=== PATIENT | female | born 1980 | race Caucasian/White ===

== ENCOUNTER 2020-05-09 13:15 | Inpatient (IN) | payer OTHER, SELFPAY ==
--- OUTSIDE RECORDS SUMMARY | 2020-05-09 13:17 | XMS REPORT ---
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
--- OUTSIDE RECORDS SUMMARY | 2020-05-09 13:17 | XMS REPORT ---
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 Assessment Chronic cough R05 Active Assessment Counseling NOS Z71.9 Active Medications Medication Code Code Instructions Start End Status Dosage System Date Date Folic Acid ND 39240165564 1 mg Orally Nov 24Mar Active as daily 2019 Acyclovir ND 32876265736 200 MG Orally Active 1 ca psule Three times a day Methotrexate ND 05201235196 2.5 MG Orally Nov 24, Active 4 tabs once weekly 2019 BuPROPion HCl ND 03276183069 100 MG Orally Active 1 tablet Twice a day Levocetirizine ND 26774819521 5 MG Orally Active 1 tablet Dihydrochloride Once a day in evening Levonorgestrel ND 58821357439 1.5 MG Orally Active as directed Hydroxychloroquine ND 99661052408 200 MG Orally Nov Yoselyn ctive 2 tabs Sulfate Once a day 2019 Results No Known Results Summary Purpose [employer] Submission
--- OUTSIDE RECORDS SUMMARY | 2020-05-09 13:17 | XMS REPORT | Continuity of Care Document ---
:1980 Author Organization [employer] Care Team Providers Name Role Phone [employer] Unavailable Un available Problems Problem Status Onset Classification Date Comments Sourc e Date Reported ANCA-negative Active Diagnosis 03/31/2020 Sabee n vasculitis Najam Rash Active Diagnosis 02/10/2020 Jossie Najam Chronic cough Active Diagnosis 02/10/2020 Sabee n Najam Counseling NOS Active Diagnosis 02/10/2020 Sabe en Najam Medications Medication Details Route Status Patient Ordering Order Source Instructions Provider Date Folic Acid as Orally Active 1 mg Orally Najam Jossie directed daily 020 Najam Hydroxychloroquine 2 tabs Orally Active 200 MG Orally Najam Jossie Sulfate Once a day 020 Najam Methotrexate 5 tabs Orally Active 2.5 MG Orally Najam Sabee n once weekly 020 Najam Folic Acid as Orally Active 1 mg Orally Najam Jossie directed daily 020 Najam Hydroxychloroquine 2 tabs Orally Active 200 MG Orally Najam Jossie Sulfate Once a day 020 Najam PredniSONE 1 tab(s) Orally Active 10 MG Orally Najam Jossie with food Once a day 020 Najam Levocetirizine 1 tablet Orally Active 5 MG Orally Najam Sabe en Dihydrochloride in the Once a day Najam evening Levonorgestrel as Orally Active 1.5 MG Orally Najam Sab een directed Najam Acyclovir 1 capsule Orally Active 200 MG Orally Najam Jossie Three times a Najam day BuPROPion HCl 1 tablet Orally Active 100 MG Orally Najam Sab een Twice a day Najam Allergies, Adverse Reactions, Alerts Substance Category Reaction Severity Reaction Status Date Comments S ource type Reported Erythromycin Adverse Info Not Adverse Active Jossie Reaction Available Reaction 0 Corry m Immunizations No Data Provided for This Section Results No Data Provided for This Section Pathology Reports No Data Provided for This Section Diagnostic Reports No Data Provided for This Section Consultation Notes No Data Provided for This Section Discharge Summaries No Data Provided for This Section History and Physicals No Data Provided for This Section Vital Signs Vital Sign Value Date Comments Source Height 66 10/20/2019 Jossie Charles Diastolic (mm Hg) 74 10/20/2019 Jossie Ashely am Systolic (mm Hg) 132 10/20/2019 Jossie Corry m Weight 251 10/20/2019 Jossie Doesuzie Encounters No Data Provided for This Section Procedures No Data Provided for This Section Assessment and Plan No Data Provided for This Section Plan of Care No Data Provided for This Section Social History No Data Provided for This Section Family History No Data Provided for This Section Advance Directives No Data Provided for This Section Functional Status No Data Provided for This Section
--- OUTSIDE RECORDS SUMMARY | 2020-05-09 13:17 | XMS REPORT ---
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
--- OUTSIDE RECORDS SUMMARY | 2020-05-09 13:17 | XMS REPORT ---
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
--- OUTSIDE RECORDS SUMMARY | 2020-05-09 13:18 | XMS REPORT | Summary of Care ---
:1980 Author Organization [facility] Address [address] [place] [address] Care Team Providers Name Role Phone Swetha Portillo Primary Care Provider Reason for Visit Reason Onset Date Comments Erroneous encounter-disregard 04/26/2020 Encounter Details Date Type Department Care Team Description 04/26/2020 [facility] PAOsorio ENCOUNTER--DISREGARD [address] (Primar y Dx) [facility], [address] [place] [address] [place], [place] [phone] [address] Allergies Active Allergy Reactions Severity Noted Date Comments Erythromycin Nausea and/or Vomiting 04/30/2019 documented as of this encounter (statuses as of 04/26/2020) Medications Medication Sig Dispensed Refills Start Date End Date Status buPROPion SR 100 0 04/12/2019 Ac tive mg SR tablet norgestrel-ethin Take 1 1 Package 12 04/30/2019 04/26/2020 D iscontinued yl estradiol tablet by (Isatu r) 0.3-30 mg-mcg mouth daily. per tabletIndication s: Initiation of OCP (BCP) documented as of this encounter (statuses as of 04/26/2020) Active Problems Problem Noted Date Morbid obesity with body mass index of 40.0-49.9 04/30 documented as of this encounter (statuses as of 04/26/2020) Social History Tobacco Use Types Packs/Day Years Used Date Never Smoker Smokeless Tobacco: Never Used Alcohol Use Drinks/Week oz/Week Comments Yes Sex Assigned at Date Recorded Not on file COVID-19 Exposure Response Date Recorded In the last month, have you been in contact with No / Unsure 04/26/2020 9:57 AM CASE SUPERVISOR someone who was confirmed or suspected to have Coronavirus / COVID-19? documented as of this encounter Last Filed Vital Signs Not on filedocumented in this encounter Progress Notes Shobha Brown PA-C - 04/26/2020 10:00 AM CASE SUPERVISOR This encounter was opened in error. Please disregard. documented in this encounter Plan of Treatment Date Type Specialty Care Team Description 05/11/2020 Office Visit Obstetrics & Gynecology Shobha Brown PA-C [address] [place] [phone] Health Maintenance Due Date Last Done Comments VARICELLA VACCINES (1 of 2 - 1981 2-dose childhood series) DTaP,Tdap,and Td Vaccines (1 - 11/26/1999 Tdap) INFLUENZA VACCINE (#1) 2019 Depression Screening 04/30/2020 04/30/2019 PAP SMEAR 04/30/2022 04/30/2019 PNEUMOCOCCAL 0-64 YEARS COMBINED Aged Out No longer eligible based on SERIES patient's age to complete this topic documented as of this encounter Results Not on filedocumented in this encounter Visit Diagnoses Diagnosis ERRONEOUS ENCOUNTER--DISREGARD - Primary documented in this encounter documented as of this encounter
--- OUTSIDE RECORDS SUMMARY | 2020-05-09 13:18 | XMS REPORT | Encounter Summary ---
:1980 Author Reason for Visit Depressive disorder Instructions 1. Depressive disorder bupropion HCl SR 150 mg ta blet,12 hr sustained-release 2. Anxiety Discussion Note: None recorded.Patient educational handouts: No information available. Plan of Care Patient Instructions As noted above. Medication stopped at current dose. COunseled pt on follow-up [facility] psychiatr y - resource options discussed. Pt verbalized understanding and agreed to psychiatry as net step. Advised pt to keep a log/journal when sh e has increase in anxiety & / or depression - will be helpful in identifying triggers when seeing a specialist. Pt verbalizes understanding of plan and agrees to POC. 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 Referral None recorded. Procedures None recorded. Surgeries None recorded. Imaging None recorded. Medications Name Start Date bupropion HCl SR 100 mg tablet,12 hr sustained-release Take 1 tablet twice a day by oral route. bupropion HCl SR 150 mg tablet,12 hr sustained-release Take 1 tablet every 12 hours by oral route as directe d for 30 days. folic acid 1 mg tablet Low-Ogestrel (28) 0.3 mg-30 mcg tablet methotrexate sodium 2.5 mg tablet Medications Administered None recorded. Vitals Height Weight BMI Blood Pressure 5 ft 4 in 236 lbs 16 oz 40.7 kg/m2 105/61 mm[Hg] Results Lab Results Date Name Specimen Result Interpretation Description Value Range Status Address 03/30/2020 Rapid SARS CoV Sars negative West 2 Ag, QL IA, Cov 2 [facility]u [facility]: [address] [place] [address], [address] [place] [address] Allergies Code Code System Name Reaction Severity Status Onset 4053 RxNorm Erythromycin Base Active Problems Name Status Onset Date Source Anxiety Active 09/18/2019 Depressive Disorder Active 09/18/2019 Vasculitis of the Skin Active 09/18/2019 Seasonal Allergy Active 09/18/2019 Asthma Active 09/18/2019 Pruritic Rash Active 09/18/2019 Vasculitis Active 10/27/2019 Mass of Soft Tissue Active 12/02/2019 Procedures Date Name Performed by 04/02/2014 Oophorectomy Information not avai lable Vaccine List None recorded. Social History Tobacco Smoking Status Never Smoker Past Encounters Encounter Date Diagnosis Provider 04/26/2020 Depressive Disorder; Anxiety Sabiha Peng, AGNP-C: [address] [facility], [address], [place] [address], Ph. 03/30/2020 Suspected COVID-19; Headache; Sabiha Peng, Otitis Externa of Bilateral AGNP-C: [address] [facility], [address], [place] [address], Ph. History of Present Illness Anxiety/Depression Reported By: Patient HPI: Quality: symptoms worse in t he evening, symptoms worse during the day, mood worse, increased anxiet y, panic symptoms. Severity: unable to maintain relationships, inte rference with household activities, interference with sleep, int erference with work. Duration: symptoms lasting over 2 weeks. Onset/ Timing: cannot identify, a couple of months ago. Context: no major life stressors. Modifying Factors: social support. Associated Symptoms : no significant weight loss, no visual/auditory hallucinatio ns, no delusions, no shortness of breath, no crying spells, no panic, no isolation, appetite good, no apathy, maintaining functionality, h omicidal ideations, emotional lability, high irritability, hostility, anx iety, depression, restlessness/agitation, sleep disturbances, feeling guilty, sleeping more (hypersomnia), inability to make decisions, social withdrawal, decreased effectiveness/productivity, palpitations, trembling or shaking (tremor), paranoid, feeling persecuted , decreased energy, poor concentration Note: <div>Sandie Randhawa is a 39yo female who states she is here today to follow-up in her "depression & anxiety". Pt states that in the past month she has had 3 panic attacks in the lastmonth. Also reports moodiness often triggered by panic attacks. Pt also notes meds were working verywell up until about one month ago. </div>Review of Systems: ROS as noted in the HPI Review of Systems Comprehensive Adult Problem ROS Reported By: Patient Constitutional: Constitutional: no significa nt weight change, good appetite, no fever, happy/content, nor mal activity level, no fatigue Eyes: Eyes: no eye pain, no blurry vision, no eye redness, no eye itchiness, no eye swelling, no eye discharge, normal movement ENMT: ENMT: no ear pain, no ear di scharge, no hearing loss, no sinus pressure, no drooling, no fa cial swelling, no congestion, no sore throat, no hoarseness, no mouth lesions Cardiovascular: Cardiovascular: no chest alin n, normal heart rate Chest/Breasts: Breasts: no lumps, no tender ness, no discharge Respiratory: Respiratory: no cough, no wh eezing, no chest tightness, no pain with respiration, sherry l respiration Gastrointestinal: GI: no difficulty swallowing , no abdominal pain, no nausea, no vomiting, no diarrhea, no co nstipation, no blood in stools, no mucous in stool Genitourinary: : no discharge, no blood i n urine, no pain with urination, no increase in frequency of urination, no voiding urgency, no vaginal discharge Musculoskeletal: Musculoskeletal: no soft tis macarena swelling, no joint swelling, no myalgia, moves all extrem ities well, no previous injuries, no trauma Skin: Skin: no pain, no itchiness, no skin dryness, no flaking, no redness, no rash, no hives, no skin lesions, no skin growths, no skin lumps, no swelling, no bruising, no insect bites Neurological symptoms: Neuro: no numbness, no weakn ess, no tingling, no burning, no shooting pain, no headache, no dizziness, no loss of consciousness Endocrine: Endocrine: normal drinking, no temperature intolerance Allergic/Immunologic: Allergy/Immunologic: no snee zing, no runny nose Physical Exam Female Adult Exam Reported By: Patient Constitutional: General Appearance: healthy- appearing, well-developed, overweight. Level of Distress: moderate distress. Ambulation: ambulating normally Psychiatric: Insight: good judgement. Men danette Status: active and alert, anxious, depressed, agitated. Orienta tion: to time, to place, to person. Memory: recent memory normal , remote memory normal Head: Head: normocephalic, atrauma tic Eyes: Lids and Conjunctivae: non-i njected, no discharge, no pallor. Pupils: PERRLA. EOM: EOMI. S clerae: non-icteric. Vision: peripheral vision grossly intact ENMT: Ears: no lesions on external ear. Hearing: no hearing loss. Nose: no lesions on external nose, nares patent, no nasal discharge. Lips, Teeth, and Gums: no mo uth or lip ulcers. Oropharynx: moist mucous membranes Neck: Neck: supple, trachea midlin e, no masses, FROM. Lymph Nodes: no cervical LAD, no supraclavic ular LAD, no axillary LAD, no inguinal LAD. Thyroid: no enlargement , non-tender, no nodules Lungs: Respiratory effort: no dyspn ea. Auscultation: breath sounds normal, good air movement, CTA excep t as noted, no wheezing, no rales/crackles, no rhonchi Cardiovascular: Apical Impulse: not displace d. Heart Auscultation: RRR, normal S1, normal S2, no murmurs, no ru bs, no gallops. Pulses including femoral / pedal: normal thro ughout Abdomen: Bowel Sounds: normal. Inspec tion and Palpation: soft, non-distended, no tenderness , no guarding, no rebound tenderness, no masses, no CVA tenderness . Liver: non-tender, no hepatomegaly. Spleen: non-tender, no splen omegaly Musculoskeletal:: Motor Strength and Tone: nor mal motor strength, normal tone. Joints, Bones, and Muscles: normal movement of all extremities, no bony abnormalities, no contr actures, no malalignment, no tenderness. Extremities: no cyanosis, no edema, no varicosities, no palpable cord Neurologic: Gait and Station: normal gai t, normal station. Cranial Nerves: grossly intact. Coordination and Cerebellum: hlfqqb-rh-euuh intact, no tremor Skin: Inspection and palpation: no rash, no lesions, no ulcer, no abnormal nevi, no induration , no nodules, good turgor, no jaundice. Nails: normal Back: Thoracolumbar Appearance: no rmal curvature Notes: <p>
</p>
--- OUTSIDE RECORDS SUMMARY | 2020-05-09 13:18 | XMS REPORT | Summary of Care ---
:1980 Author Organization [facility] Address [address] [place] [address] Care Team Providers Name Role Phone Swetha Portillo Primary Care Provider Reason for Visit Reason Comments Refill Request OCP Encounter Details Date Type Department Care Team Description 04/26/2020 Refill [facility] Women's Brook Brown PA-C Refill Request (OCP) Healthcare- [address] [place] [address] [address] [place] [address] [phone] Allergies Active Allergy Reactions Severity Noted Date Comments Erythromycin Nausea and/or Vomiting 04/30/2019 documented as of this encounter (statuses as of 04/26/2020) Medications Medication Sig Dispensed Refills Start Date End Date Status buPROPion SR 100 0 04/12/2019 Ac tive mg SR tablet norgestrel-ethin Take 1 1 Package 0 04/26/2020 Ac tive yl estradioL tablet by 0.3-30 mg-mcg mouth daily. per tabletIndication s: Initiation of OCP (BCP) norgestrel-ethin Take 1 1 Package 12 04/30/2019 04/26/2020 D iscontinued yl estradiol tablet by (Reorde r) 0.3-30 mg-mcg mouth daily. per tabletIndication [...] with No / Unsure 04/26/2020 9:57 AM HOME HEALTH CARE CASE MANAGER someone who was confirmed or suspected to have Coronavirus / COVID-19? documented as of this encounter Last Filed Vital Signs Not on filedocumented in this encounter Miscellaneous Notes Telephone Encounter - Jadyn Anand RN - 04/26/2020 10:28 AM CSTPatient was scheduled for WWE today, however, was 4 days too early, last WWE 04/30/2019. Patient states that she runs out of her OCP this week. Per Shobha Brown PA-C, OK to send 1 mo courtesy refillof OCP. Patient verbalized understanding and agrees to plan of care. WWE scheduled for 05/11/2020. Jadyn Anand RN 04/26/2020 10:30 AM HEALTH CARE CASE MANAGER documented in this encounter Plan of Treatment Date Type Specialty Care Team Description 05/11/2020 Office Visit Obstetrics & Gynecology Shobha Brown PA-C [address] [place] [phone] Health Maintenance Due Date Last Done [...] filedocumented in this encounter Visit Diagnoses Diagnosis Initiation of OCP (BCP) General counseling for prescription of o ral contraceptives documented in this encounter Insurance Payer Benefit Plan / Group Subscriber ID Effective Dates Phone Address Type [place] [id number] 2020-Present HMO /PPO/POS documented as of this encounter
--- OUTSIDE RECORDS SUMMARY | 2020-05-09 13:18 | XMS REPORT | Continuity of Care Document ---
:1980 Author Organization [facility] t Address [address] [place] [address] Care Team Providers Name Role Phone Stephanie COLLINS Attending Clinician Gloria Peng Attending Clinician [phone] Problems Condition Condition Condition Status Onset Resolution Last Treating Co mments Source Name Details Category Date Date Treatment Clinician Date ANCA-negat Diagnosis Active 2020-03-31 Memoria agustín 03:46:17 l vasculitis Justen n ANCA-negat agustín vasculitis Active Diagnosis 03/31/2020 Jossie Najam Rash Diagnosis Active 2020-02-10 Mem oria 03:45:55 l Rash [place] Active Diagnosis 02/10/2020 Jossie Najam Chronic Diagnosis Active 2020-02-10 Me moria cough 03:45:55 l Chronic [place] cough Active Diagnosis 02/10/2020 Jossie Najam Counseling Diagnosis Active 2020-02-10 Memoria NOS 03:45:55 l [place] Counseling NOS Active Diagnosis 02/10/2020 Jossie Najam Allergies, Adverse Reactions, Alerts Allergy Allergy Status Severity Reaction(s) Onset Inactive Treating Comm ents Source Name Type Date Date Clinician Erythrom Erythrom Active Info Not 2019-04 Stephen kel ycin ycin Available 04-10 l 00:00: [place] 00 Medications Ordered Filled Start Stop Current Ordering Indication Dosage Frequency Signature Comments Components Source Medication Medication Date Date Medication? Clinician (SIG) Name Name Folic Acid 2019-04 Yes Jossie as Memor ia 2-29 Najam directed l 00:00: [place] 00 Levocetiriz 2019-04 Yes Jossie 1 tablet Memoria ine 1-10 Najam in the l Dihydrochlo 03:45: evening Her ride 55 Levonorgest 2020-1 Yes Jossie as Stephen kel rel 1-10 Najam directed l 03:45: [place] 55 Acyclovir 2020-1 Yes Jossie 1 capsule M emoria 1-10 Najam l 03:45: [place] 55 BuPROPion 2020-1 Yes Jossie 1 tablet Me moria HCl 1-10 Najam l 03:45: [place] 55 Hydroxychlo 2020-1 Yes Jossie 2 tabs Me moria roquine 1-09 Najam l Sulfate 00:00: Methotrexat 2020-0 Yes Jossie 5 tabs Me moria e 8-25 Najam l 00:00: Folic Acid 2020-0 Yes Jossie as Memor ia 8-25 Najam directed l 00:00: Hydroxychlo 2020-0 Yes Jossie 2 tabs Me moria roquine 8-10 Najam l Sulfate 00:00: PredniSONE 2020-0 Yes Jossie 1 tab(s) M emoria 8-10 Najam with food l 00:00: Vital Signs Vital Name Observation Time Observation Value Comments Source Height 2019-10-20 18:00:00 [facility] Diastolic (mm Hg) 2019-10-20 18:00:00 Mem orial [place] Systolic (mm Hg) 2019-10-20 18:00:00 Stephen rial [place] Weight 2019-10-20 18:00:00 [facility] Russel Procedures This patient has no known procedures. Encounters Start End Encounter Admission Attending Care Care Encounter Source Date/Time Date/Time Type Type Clinicians Facility Department ID 2020-04-26 2020-04-26 Office Stephanie [facility] [id number] 10:00:00 10:30:00 Visit Shobha Araujo [id number] Rufina [id number] Zakiya [id number] [address] 2020-04-26 2020-04-26 [facility] [id number] 00:00:00 00:00:00 , Sabiha [id number] Gloria [id number] 2020-03-30 2020-03-30 Outpatient [facility] [id number] Memoria 10:27:00 10:27:00 Rheumatol Rheumatolog l ogy y [place] [facility] 2020-03-11 2020-03-11 Outpatient [facility] [id number] Memoria 09:26:00 09:26:00 Rheumatol Rheumatolog l ogy y [facility] 2020-03-04 2020-03-04 Outpatient [facility] [id number] Memoria 08:31:00 08:31:00 Rheumatol Rheumatolog l ogy y [place] [facility] 2020-02-09 2020-02-09 Outpatient [facility] [id number] Memoria 13:15:00 13:15:00 Rheumatol Rheumatolog l ogy y [place] [facility] 2019-11-24 2019-11-24 Outpatient [facility] [id number] Memoria 13:11:00 13:11:00 Rheumatol Rheumatolog l ogy y [place] [facility] 2019-11-10 2019-11-10 Outpatient [facility] [id number] Memoria 15:04:00 15:04:00 Rheumatol Rheumatolog l ogy y [facility] 2019-11-10 2019-11-10 Outpatient [facility] [id number] Memoria 13:15:00 13:15:00 Rheumatol Rheumatolog l ogy y [facility] 2019-10-20 2019-10-20 Outpatient [facility] [id number] Memoria 13:00:00 13:00:00 Rheumatol Rheumatolog l ogy y [facility] Results This patient has no known results.
--- OUTSIDE RECORDS SUMMARY | 2020-05-09 13:18 | XMS REPORT | Summary of Care ---
:1980 Author Organization [facility] Address [address] [place] [id number] Care Team Providers Name Role Phone Swetha Portillo Primary Care Provider Reason for Visit Reason Onset Date Comments Erroneous encounter-disregard 04/26/2020 Encounter Details Date Type Department Care Team Description 04/26/2020 Office Visit Critical access hospitalShobha orozco [facility] PA-C ENCOUNTER--DISREGARD [address] (Prim[place] y Dx) [facility], [address] [place] [id number] [place], [place] [phone] Allergies Active Allergy Reactions Severity Noted Date Comments Erythromycin Nausea and/or Vomiting 04/30/2019 documented as of this encounter (statuses as of 04/26/2020) Medications Medication Sig Dispensed Refills Start Date End Date Status buPROPion SR 100 mg SR 0 04/12/2019 Active tablet norgestrel-ethinyl Take 1 tablet by 1 Package 12 04/30/2019 Active estradiol 0.3-30 mouth daily. 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 documented as of this encounter Last Filed Vital Signs Not on filedocumented in this encounter Progress Notes Shobha Brown PA-C - 04/26/2020 10:00 AM OPERATING ENGINEER APPRENTICE This encounter was opened in error. Please disregard. documented in this encounter Plan of Treatment Date Type Specialty Care Team Description 05/11/2020 Office Visit Obstetrics & Gynecology Shobha Brown PA-C [address] [place] [address] [id number] Health Maintenance Due Date Last Done [...]
[2020-05-09 15:10] LABS: Absolute Lymphocytes (CBC) 0.4 K/uL (0.7-4.9); Basophils % 0.2 % (0-1.3); Hematocrit 42.4 % (36.0-45.0); Lymphocytes % 12.7 % (15.3-44.8); MPV 11.9 fL (7.6-11.3); RBC Red Blood Cell Count 5.05 M/uL (3.86-4.86)
[2020-05-09] MEDS ORDERED: ONDANSETRON 4 MG/2 ML VIAL ONE (15:16)
[2020-05-09] MEDS ORDERED: ACETAMINOPHEN 500 MG TAB ONE (15:16)
[2020-05-09] MEDS ORDERED: NA CHLORIDE 0.9% 1,000 ML ONE (15:16)
[2020-05-09] MEDS ORDERED: METHYLPREDNISOLONE 125 MG INJ ONE (15:16)
[2020-05-09 15:31] LABS: C-Reactive Protein 70.3 mg/L (<3.00); Ferritin 92.7 ng/mL (8-388); Potassium 3.6 mmol/L (3.5-5.1)
--- NOTE | 2020-05-09 15:48 | RAD REPORT ---
EXAM DESCRIPTION: RAD - Chest Single View - 05/09/2020 3:42 pm CLINICAL HISTORY: Cough;Dyspnea Chest pain. COMPARISON: No comparisons FINDINGS: Portable technique limits examination quality. Moderate bilateral pulmonary opacities are present likely representing viral infection. The heart is normal in size. No displaced fractures.
--- NOTE | 2020-05-09 16:35 | ER ---
Nurse's Notes [facility] Name: Sandie Randhawa Age: 39 yrs Sex: Female : 1980 Arrival Date: 05/09/2020 Time: 13:18 Bed 13 Private MD: Diagnosis: Coronavirus infection, unspecified;Viral pneumonia, unspecified;Dehydration Presentation: 05/09 14:09 Chief complaint: Patient states: started with cough on Apr 21, tested positive for iw COVID on 05-05, now is SOB, fever, chills, worse cough, started vomiting lats night. Coronavirus screen: chills, congestion, cough unrelated to allergies, difficulty breathing, fatigue, fever. Ebola Screen: Patient negative for fever greater than or equal to 101.5 degrees Fahrenheit, and additional compatible Ebola Virus Disease symptoms Patient denies exposure to infectious person. Patient denies travel to an Ebola-affected area in the 21 days before illness onset. No symptoms or risks identified at this time. Risk Assessment: Do you want to hurt yourself or someone else? Patient reports no desire to harm self or others. Onset of symptoms was May 01, 2020. 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 - Social history:: Smoking status: Patient denies any tobacco usage or history of. - Family history:: not pertinent. - Hospitalizations: : No recent hospitalization is reported. Screenin:20 Abuse screen: Denies threats or abuse. Nutritional screening: No deficits noted. tw2 Tuberculosis screening: No symptoms or risk factors identified. Fall Risk None identified. Assessment: 14:20 General: Appears in no apparent distress. obese, Behavior is calm, cooperative, tw2 appropriate for age. 14:20 Pain: Complains of pain in body aches. Neuro: Level of Consciousness is awake, alert, tw2 obeys commands, Oriented to person, place, time, situation. Cardiovascular: Patient's skin is warm and dry. Respiratory: Reports shortness of breath at rest on exertion cough that is non-productive, persistent. GI: Abdomen is distended, non-distended, obese, Reports nausea. : No signs and/or symptoms were reported regarding the genitourinary system. EENT: Reports nasal congestion nasal discharge. Derm: No signs and/or symptoms reported regarding the dermatologic system. Musculoskeletal: Range of motion: intact in all extremities. 15:12 Reassessment: Patient appears in no apparent distress at this time. No changes from tw2 previously documented assessment. Patient and/or family updated on plan of care and expected duration. Pain level reassessed. Patient is alert, oriented x 3, equal unlabored respirations, skin warm/dry/pink. 17:06 Reassessment: Patient appears in no apparent distress at this time. No changes from tw2 previously documented assessment. Patient and/or family updated on plan of care and expected duration. Pain level reassessed. Patient is alert, oriented x 3, equal unlabored respirations, skin warm/dry/pink. 18:20 Reassessment: Patient appears in no apparent distress at this time. No changes from tw2 previously documented assessment. Patient and/or family updated on plan of care and expected duration. Pain level reassessed. Patient is alert, oriented x 3, equal unlabored respirations, skin warm/dry/pink. 18:53 Reassessment: Patient appears in no apparent distress at this time. No changes from tw2 previously documented assessment. Patient and/or family updated on plan of care and expected duration. Pain level reassessed. Patient is alert, oriented x 3, equal unlabored respirations, skin warm/dry/pink. Vital Signs: 14:12 BP 95 / 56; Pulse 73; Resp 20; Temp 101.4; Pulse Ox 90% on R/A; Weight 106.14 kg; iw Height 5 ft. 4 in. (162.56 cm); Pain 9/10; 15:12 BP 102 / 55; Pulse 89; Resp 20; Pulse Ox 93% on R/A; tw2 15:59 BP 103 / 58; Pulse 64; Resp 17; Pulse Ox 98% on R/A; tw2 16:59 BP 105 / 55; Pulse 84; Resp 22; Pulse Ox 92% on R/A; tw2 17:11 Temp 100.4(O); tw2 18:20 BP 101 / 53; Pulse 79; Resp 20; Pulse Ox 100% on 2 lpm NC; tw2 14:12 Body Mass Index 40.17 (106.14 kg, 162.56 cm) iw 16:59 pt placed on 2L nc at this time will continue to monitor tw2 ED Course: 13:18 Patient arrived in ED. as 14:10 Triage completed. iw 14:10 Bed in low position. Call light in reach. Pulse ox on. NIBP on. tw2 14:19 Suzie Matos RN is Primary Nurse. tw2 14:19 Arm band placed on. tw2 14:21 Jakob Berry MD is Attending Physician. rn 15:06 Inserted saline lock: 20 gauge in right antecubital area, using aseptic technique. tw2 Blood collected. 15:42 CXR XRAY In Process Unspecified. EDMS 16:34 Carlos Berry MD is Hospitalizing Provider. rn 18:29 No provider procedures requiring assistance completed. Patient admitted, IV remains in tw2 place. Administered Medications: 15:06 Drug: Zofran (Ondansetron) 4 mg Route: IVP; Site: right antecubital; tw2 17:11 Follow up: Response: No adverse reaction; Nausea is decreased tw2 15:08 Drug: SOLU-Medrol 125 mg Route: IVP; Site: right antecubital; tw2 17:13 Follow up: Response: No adverse reaction tw2 15:11 Drug: NS 0.9% 1000 ml Route: IV; Rate: 1000 ml; Site: right antecubital; tw2 16:15 Follow up: Response: No adverse reaction; IV Status: Completed infusion; IV Intake: tw2 1000ml 15:11 Drug: Tylenol 1000 mg Route: PO; tw2 17:12 Follow up: Response: No adverse reaction tw2 Intake: 16:15 IV: 1000ml; Total: 1000ml. tw2 Outcome: 16:35 Decision to Hospitalize by Provider. rn 18:32 Admitted to Med/surg accompanied by tech, via wheelchair, room 411, Report called to tw2 HERMELINDA Luna 18:32 Condition: stable 18:32 Instructed on the need for transfer. 18:53 Patient left the ED. tw2 Signatures: Dispatcher [employer] Trinidad Nugent Irene, RN RN iw Jakob Berry MD MD rn Wise, Tara, RN RN tw2 Corrections: (The following items were deleted from the chart) 14:21 14:12 Pulse 73bpm; Resp 20bpm; Pulse Ox 90% RA; Temp 101.4F; 106.14 kg; Height 5 ft. 4 iw in.; BMI: 40.1; Pain 9/10; iw 17:07 14:20 General: Appears in no apparent distress. obese, Behavior is calm, cooperative, tw2 appropriate for age, tw2 17:11 16:59 BP 105 / 55; Pulse 84bpm; Resp 22bpm; Pulse Ox 92% RA; tw2 tw2
--- NOTE | 2020-05-09 16:35 | EDPHYS ---
Physician Documentation [facility] Name: Sandie Randhawa Age: 39 yrs Sex: Female : 1980 Arrival Date: 05/09/2020 Time: 13:18 Bed 13 Private MD: ED Physician Jakob Berry HPI: 05/09 14:29 This 39 yrs old Female presents to ER via Ambulatory with complaints of rn covid+, feels worse. 14:29 The patient has shortness of breath at rest, with light activity. rn 14:30 Onset: The symptoms/episode began/occurred 1 week(s) ago. Duration: The symptoms are rn continuous. The patient's shortness of breath is aggravated by exertion, light activity. Associated signs and symptoms: Pertinent positives: productive cough, fever, Pertinent negatives: hemoptysis. Severity of symptoms: At their worst the symptoms were moderate in the emergency department the symptoms are unchanged. The patient has not experienced similar symptoms in the past. The patient has not recently seen a physician. Reports tested + for COVID 4 days ago at [facility], not prescribed anything, feels worse, feels weak, lightheaded and sob. Reports hx of asthma. + vomiting and diarrhea in addition to cough and sob. . [employer]: 14:12 LMP 04/26/2020 iw Historical: - Allergies: 14:12 Erythromycin; iw - Home Meds: 14:12 bupropion HCl 150 mg Oral TbER 1 tab 2 times per day [Active]; folic acid 1 mg Oral tab iw 1 tab once daily [Active]; methotrexate sodium 2.5 mg Oral tab 1 tab once wkly [Active]; albuterol sulfate inhalation Inhl [Active]; - PMHx: 14:12 Anxiety; Depression; ADD/ADHD; iw - PSHx: 14:12 right fallopian tube and ovary; iw - Immunization history:: Adult Immunizations. - Social history:: Smoking status: Patient denies any tobacco usage or history of. - Family history:: not pertinent. - Hospitalizations: : No recent hospitalization is reported. ROS: 14:30 Constitutional: + fever and chills Eyes: Negative for injury, pain, redness, and internal investigator, ENT: Negative for injury, pain, and discharge, Neck: Negative for injury, pain, and swelling, Cardiovascular: Negative for chest pain, palpitations, and edema, Respiratory: + sob and cough Abdomen/GI: + nausea/vomiting/diarrhea Back: Negative for injury and pain, : Negative for injury, bleeding, discharge, and swelling, MS/Extremity: Negative for injury and deformity, Skin: Negative for injury, rash, and discoloration, Neuro: Negative for numbness, tingling, and seizure. Exam: 14:30 Constitutional: This is a well developed, well nourished patient who is awake, alert, rn mild tachypnea Head/Face: Normocephalic, atraumatic. Eyes: Periorbital areas with no swelling, redness, or edema. ENT: dry MM, no stridor Cardiovascular: Regular rate and rhythm. No pulse deficits. Respiratory: + mild tachypnea, no retractions, frequent cough Abdomen/GI: soft, non-tender Skin: Warm, dry MS/ Extremity: Pulses equal, no cyanosis. Neuro: Awake and alert, GCS 15 15:16 ECG was reviewed by the Attending Physician. rn Vital Signs: 14:12 BP 95 / 56; Pulse 73; Resp 20; Temp 101.4; Pulse Ox 90% on R/A; Weight 106.14 kg; iw Height 5 ft. 4 in. (162.56 cm); Pain 9/10; 15:12 BP 102 / 55; Pulse 89; Resp 20; Pulse Ox 93% on R/A; tw2 15:59 BP 103 / 58; Pulse 64; Resp 17; Pulse Ox 98% on R/A; tw2 16:59 BP 105 / 55; Pulse 84; Resp 22; Pulse Ox 92% on R/A; tw2 17:11 Temp 100.4(O); tw2 18:20 BP 101 / 53; Pulse 79; Resp 20; Pulse Ox 100% on 2 lpm NC; tw2 14:12 Body Mass Index 40.17 (106.14 kg, 162.56 cm) iw 16:59 pt placed on 2L nc at this time will continue to monitor tw2 MDM: 14:21 Patient medically screened. rn 16:33 Differential diagnosis: pneumonia, pulmonary edema, COVID pneumonia, dehydration. Data rn reviewed: vital signs, nurses notes, lab test result(s), radiologic studies, plain films, and as a result, I will admit patient. Counseling: I had a detailed discussion with the patient and/or guardian regarding: the historical points, exam findings, and any diagnostic results supporting the discharge/admit diagnosis, lab results, radiology results, the need for further work-up and treatment in the hospital. Response to treatment: the patient's symptoms have mildly improved after treatment, and as a result, I will admit patient. Admission orders: after a detailed discussion of the patient's condition and case, the admit orders are written by me. ED course: Pt with moderate COVID pneumonia, hypotensive upon presentation, 90% on RA, still mild tachypnea, will observe overnight to Dr. Berry.. 05/09 14:28 Order name: Blood Culture Adult (2) rn 05/09 14:28 Order name: BMP; Complete Time: 16:19 rn 05/09 14:28 Order name: C-Reactive Protein; Complete Time: 16:19 rn 05/09 14:28 Order name: CBC with Diff; Complete Time: 15:16 rn 05/09 14:28 Order name: Ferritin; Complete Time: 16:19 rn 05/09 14:28 Order name: Lactate; Complete Time: 16:19 rn 05/09 14:28 Order name: Procalcitonin; Complete Time: 16:19 rn 05/09 14:28 Order name: CXR XRAY; Complete Time: 16:19 rn 05/09 14:28 Order name: EKG; Complete Time: 14:29 rn 05/09 17:08 Order name: CORONAVIRUS EDPA 05/09 14:28 Order name: Cardiac monitoring; Complete Time: 15:12 rn 05/09 14:28 Order name: Droplet/Contact Precautions; Complete Time: 14:56 rn 05/09 14:28 Order name: EKG - Nurse/Tech; Complete Time: 15:12 rn 05/09 14:28 Order name: IV Start; Complete Time: 14:57 rn 05/09 14:28 Order name: Labs collected and sent; Complete Time: 14:57 rn 05/09 14:28 Order name: O2 Per Protocol; Complete Time: 14:57 rn 05/09 14:28 Order name: O2 Sat Monitoring; Complete Time: 14:57 rn EC:16 Rate is 83 beats/min. Rhythm is regular. QRS [place] is Normal. NV interval is normal. QRS rn interval is normal. QT interval is normal. No Q waves. T waves are Normal. No ST changes noted. Clinical impression: Normal ECG. Interpreted by me. Reviewed by me. Administered Medications: 15:06 Drug: Zofran (Ondansetron) 4 mg Route: IVP; Site: right antecubital; tw2 17:11 Follow up: Response: No adverse reaction; Nausea is decreased tw2 15:08 Drug: SOLU-Medrol 125 mg Route: IVP; Site: right antecubital; tw2 17:13 Follow up: Response: No adverse reaction tw2 15:11 Drug: NS 0.9% 1000 ml Route: IV; Rate: 1000 ml; Site: right antecubital; tw2 16:15 Follow up: Response: No adverse reaction; IV Status: Completed infusion; IV Intake: tw2 1000ml 15:11 Drug: Tylenol 1000 mg Route: PO; tw2 17:12 Follow up: Response: No adverse reaction tw2 Disposition: 05/09/20 16:35 Hospitalization ordered by Carlos Berry for Observation. Preliminary diagnosis are Coronavirus infection, unspecified, Viral pneumonia, unspecified, Dehydration. - Bed requested for Telemetry/MedSurg (observation). - Status is Observation. tw2 - Condition is Stable. - Problem is new. - Symptoms have improved. Signatures: Dispatcher [employer] Suzy Link RN RN iw Nieto, Roman, MD MD rn Martinez, Eric em1 Suzie Matos RN RN tw2 Corrections: (The following items were deleted from the chart) 18:26 16:35 Hospitalization Ordered by Carlos Berry MD for Observation. Preliminary em1 diagnosis is Coronavirus infection, unspecified; Viral pneumonia, unspecified; Dehydration. Bed requested for Telemetry/MedSurg (observation). Status is Observation. Condition is Stable. Problem is new. Symptoms have improved. rn 18:53 18:26 05/09/2020 16:35 Hospitalization Ordered by Carlos Berry MD for Observation. tw2 Preliminary diagnosis is Coronavirus infection, unspecified; Viral pneumonia, unspecified; Dehydration. Bed requested for Telemetry/MedSurg (observation). Status is Observation. Condition is Stable. Problem is new. Symptoms have improved. em1
--- NOTE | 2020-05-09 17:11 | P.HP ---
Certification for Inpatient Patient admitted to: Observation With expected LOS: <2 Midnights Practitioner: I am a practitioner with admitting privileges, knowledge of patient current condition, hospital course, and medical plan of care. Services: Services provided to patient in accordance with Admission requirements found in Title 42 Section 412.3 of the Code of Federal Regulations Patient History Date of Service: 05/09/20 Reason for admission: Acute hypoxemic respiratory failure, COVID-19 Pneumonia History of Present Illness: 39-year-old F, PMH: Asthma, depression, anxiety, unknown vasculitis, who presents to the ED due to worsening shortness of breath, fevers/chills, cough over the past week. Since yesterday she has been having nausea, vomiting, and some diarrhea. She reports testing positive for COVID-19 ~1 week ago. Works at [employer], thinks she got it at work. Patient was noted to be afebrile, blood pressure slightly low, had mild leukopenia at 3.3, thrombocytopenia of 107, CRP: 70.3, pro calcitonin 0.06. CXR consistent with viral/ COVid pneumonia. 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 - Family History Father -: Diabetes Mother -: Diabetes - Social History Smoking Status: Never smoker Alcohol use: No CD- Drugs: No Place of Residence: Home (Alone) Review of Systems 10-point ROS is otherwise unremarkable Physical Examination - Studies Laboratory Data (last 24 hrs) 05/09/20 14:45: WBC 3.30 L, Hgb 13.9, Hct 42.4, Plt Count 107 L 05/09/20 14:45: Sodium 137, Potassium 3.6, BUN 6 L, Creatinine 0.88, Glucose 134 H Assessment and Plan - Advance Directives Does patient have a Living Will: No Does patient have a Durable POA for Healthcare: No Physician Review Additional Text: Physical exam Gen: Mild distress HEENT: Normal conjunctiva, sclerae anicteric CV: Regular rate rhythm, no murmur Pulm: Bibasilar crackles, diminished breath sounds Abd: Soft, nontender, nondistended Ext: no edema, no rash Neuro: AAOx3 Problem list: Acute hypoxemic respiratory failure secondary to COVID-19 pneumonia Asthma Depression/anxiety Unspecified vasculitis -pt hypoxic to 88-90% on RA at rest -will bring patient in for obs, start solumedrol, ivermectin, vitamin supplementation, lovenox -oxygen as needed, wean as tolerated -obtain home medications and restart -room air sats, executive secretary social welfare consult for home O2 -states unspecified vasculitis - had rash last year, being worked up by rheum, on MTX for this VTE: lovenox Code: full dispo: anticipate dc home in 24-48hrs, will likely need home O2 Time Spent Managing Pts Care (In Minutes): 65
[2020-05-09] MEDS: PROMETHAZINE INJ 25 MG/ML AMP IV PRN (19:49)
[2020-05-09] MEDS: METHYLPREDNISOLONE 125 MG INJ IV SCH (19:49)
[2020-05-09] MEDS: ASCORBIC ACID 500 MG TABLET PO SCH ×2 (19:50→21:00)
[2020-05-09] MEDS: FAMOTIDINE 20 MG TAB PO SCH (19:50)
[2020-05-09] MEDS: THIAMINE 200 MG/2 ML INJ IVP SCH (19:50)
[2020-05-09] MEDS: NA CHLORIDE 0.9% 1,000 ML IV SCH (19:51)
[2020-05-09] MEDS: INSULIN -REGULAR HUMAN 50 UNIT/0.5 ML ML SQ SCH (21:00)
[2020-05-09 21:33] VITALS: BMI 40.1
[2020-05-10] MEDS: ONDANSETRON 4 MG/2 ML VIAL IV PRN (04:03)
[2020-05-10 04:19] LABS: Absolute Lymphocytes (CBC) 0.4 K/uL (0.7-4.9); Basophils % 0.2 % (0-1.3); Hematocrit 38.6 % (36.0-45.0); Lymphocytes % 25.2 % (15.3-44.8); MPV 11.8 fL (7.6-11.3); RBC Red Blood Cell Count 4.64 M/uL (3.86-4.86)
[2020-05-10 04:46] LABS: Albumin 2.6 g/dL (3.4-5.0); Bilirubin Total 0.2 mg/dL (0.2-1.0); Ferritin 96.9 ng/mL (8-388); Magnesium 2.3 mg/dL (1.8-2.4); Potassium 4.3 mmol/L (3.5-5.1); Protein, Total 6.3 g/dL (6.4-8.2)
[2020-05-10 05:07] LABS: Blood Morphology Comment NOT SEEN (NOT SEEN); Platelet Estimate DECR; White Blood Cell Scan OK (OK)
[2020-05-10] MEDS: IVERMECTIN 3 MG TABLET PO SCH (08:22)
[2020-05-10] MEDS: NA CHLORIDE 0.9% 1,000 ML IV SCH ×2 (08:22→18:38)
[2020-05-10] MEDS: INSULIN -REGULAR HUMAN 50 UNIT/0.5 ML ML SQ SCH ×4 (08:23→21:10)
[2020-05-10] MEDS: ZINC SULFATE 220 MG CAP PO SCH (08:23)
[2020-05-10] MEDS: VITAMIN D 5,000 UNIT CAP PO SCH (08:23)
[2020-05-10] MEDS: ENOXAPARIN 40 MG/0.4 ML SQ SCH (08:24)
[2020-05-10] MEDS: THIAMINE 200 MG/2 ML INJ IVP SCH ×2 (08:24→21:11)
[2020-05-10] MEDS: METHYLPREDNISOLONE 125 MG INJ IV SCH ×2 (08:24→21:11)
[2020-05-10] MEDS: ASCORBIC ACID 500 MG TABLET PO SCH ×4 (08:25→21:09)
[2020-05-10] MEDS: FAMOTIDINE 20 MG TAB PO SCH ×2 (08:26→21:09)
[2020-05-10] MEDS: ACETAMINOPHEN 500 MG TAB PO PRN ×2 (12:13→22:30)
--- NOTE | 2020-05-10 18:47 | P.PN ---
Subjective Date of Service: 05/10/20 Chief Complaint: Acute hypoxemic respiratory failure, COVID-19 Pneumonia Subjective: Improving (Feeling a little bit better with the oxygen, still gets dyspneic and hypoxic with ambulation, eating better) Review of Systems 10-point ROS is otherwise unremarkable Physical Examination - Vital Signs Temperature: 98.5 F Blood Pressure: 117/59 Pulse: 66 Respirations: 24 Pulse Ox (%): 93 Assessment & Plan Physician Review Additional Text: Physical exam Gen: NAD HEENT: Normal conjunctiva, sclerae anicteric CV: Regular rate rhythm, no murmur Pulm: Bibasilar crackles, diminished breath sounds Abd: Soft, nontender, nondistended Ext: no edema, no rash Neuro: AAOx3 Problem list: Acute hypoxemic respiratory failure secondary to COVID-19 pneumonia Asthma Depression/anxiety Unspecified vasculitis -patient with SpO2 91% on 3 L nasal cannula -continue solumedrol, ivermectin, vitamin supplementation, lovenox -oxygen as needed, wean as tolerated -restart home meds -room air sats, social media designer consult for home O2 -states unspecified vasculitis - had rash last year, being worked up by rheum, on MTX for this VTE: lovenox Code: full dispo: anticipate dc home in 24-48hrs, will likely need home O2 awaiting home O2 set up Time Spent Managing Pts Care (In Minutes): 35
[2020-05-10] MEDS ORDERED: ALBUTEROL INHALER 60 PUFF/8 GM IH PRN (19:46)
[2020-05-10] MEDS: NORGESTREL ETHINYL ESTRADIOL PO SCH (21:00)
[2020-05-10] MEDS: BUPROPION HCL XL 150 MG TAB PO SCH (21:09)
[2020-05-10] MEDS: FOLIC ACID 1 MG TABLET PO SCH (21:10)
[2020-05-11 04:01] LABS: Absolute Lymphocytes (CBC) 0.6 K/uL (0.7-4.9); Lymphocytes % 6.2 % (15.3-44.8); MPV 11.4 fL (7.6-11.3); RBC Red Blood Cell Count 4.36 M/uL (3.86-4.86)
[2020-05-11 04:29] LABS: ALT/SGPT 52 U/L (12-78); AST/SGOT 38 U/L (15-37); Albumin 2.6 g/dL (3.4-5.0); Alkaline Phosphatase 63 U/L (45-117); BUN Blood Urea Nitrogen 9 mg/dL (7-18); Bicarbonate 23 mmol/L (21-32); Bilirubin Total 0.3 mg/dL (0.2-1.0); Ferritin 98.3 ng/mL (8-388); Glucose Level 177 mg/dL (74-106); Magnesium 2.3 mg/dL (1.8-2.4); Potassium 3.6 mmol/L (3.5-5.1); Sodium Level 142 mmol/L (136-145)
[2020-05-11 05:07] LABS: Blood Morphology Comment NOT SEEN (NOT SEEN); Platelet Estimate ADEQ
[2020-05-11] MEDS ORDERED: POTASSIUM 25 MEQ EFFERV TAB PO ONE (06:19)
[2020-05-11] MEDS: INSULIN -REGULAR HUMAN 50 UNIT/0.5 ML ML SQ SCH ×4 (07:30→21:00)
[2020-05-11] MEDS: FAMOTIDINE 20 MG TAB PO SCH ×2 (08:07→21:28)
[2020-05-11] MEDS: METHYLPREDNISOLONE 125 MG INJ IV SCH ×2 (08:07→21:28)
[2020-05-11] MEDS: ASCORBIC ACID 500 MG TABLET PO SCH ×4 (08:07→21:28)
[2020-05-11] MEDS: THIAMINE 200 MG/2 ML INJ IVP SCH ×2 (08:07→21:31)
[2020-05-11] MEDS: ENOXAPARIN 40 MG/0.4 ML SQ SCH (08:08)
[2020-05-11] MEDS: VITAMIN D 5,000 UNIT CAP PO SCH (08:08)
[2020-05-11] MEDS: ZINC SULFATE 220 MG CAP PO SCH (08:08)
[2020-05-11] MEDS: BUPROPION HCL XL 150 MG TAB PO SCH ×2 (08:08→21:27)
[2020-05-11] MEDS: ONDANSETRON 4 MG/2 ML VIAL IV PRN ×2 (08:08→20:27)
[2020-05-11] MEDS: NA CHLORIDE 0.9% 1,000 ML IV SCH ×2 (08:26→22:23)
[2020-05-11] MEDS: PROMETHAZINE INJ 25 MG/ML AMP IV PRN (10:30)
[2020-05-11] MEDS: BENZONATATE 100 MG CAP PO PRN (11:47)
[2020-05-11] MEDS ORDERED: NA CHLORIDE 0.9% 250 ML IV ONE (16:56)
[2020-05-11] MEDS ORDERED: ALBUTEROL INHALER 60 PUFF/8 GM IH PRN (17:00)
--- NOTE | 2020-05-11 17:04 | P.PN ---
Subjective Date of Service: 05/11/20 Chief Complaint: Acute hypoxemic respiratory failure, COVID-19 Pneumonia Patient report increase in shortness of breath. She is not requiring 3 L of oxygen by nasal cannula. She denies any chest pain. Physical Examination - Vital Signs Temperature: 98.1 F Blood Pressure: 102/58 Pulse: 63 Respirations: 16 Pulse Ox (%): 92 - Physical Exam General: Alert, Oriented x3, Mild distress HEENT: Mucous membr. moist/pink Neck: Supple, JVD not distended Respiratory: Normal air movement Cardiovascular: No edema, Regular rate/rhythm Gastrointestinal: Soft and benign, Non-distended Musculoskeletal: No swelling Integumentary: No rashes Neurological: Other (No focal motor deficit) Assessment And Plan - Current Problems (Diagnosis) (1) Acute respiratory failure with hypoxia Current Visit: Yes Status: Acute (2) Pneumonia due to COVID-19 virus Current Visit: Yes Status: Acute (3) Asthma Current Visit: Yes Status: Acute (4) Thrombocytopenia Current Visit: Yes Status: Acute Physician Review Additional Text: -patient with SpO2 91% on 3 L nasal cannula. -her clinical condition is getting worse. -status post Ivermectin -continue solumedrol, vitamin supplementation, lovenox -will give convalescent plasma and start Remdesivir today -oxygen as needed, wean as tolerated. -patient desaturate to 85% on room air at rest. -patient is on methotrexate for nonspecific vasculitis. VTE: lovenox Code: full
[2020-05-11] MEDS ORDERED: Remdesivir 200 MG in NA CHLORIDE 0.9% 250 ML IV ONE (18:00)
[2020-05-11] MEDS ORDERED: MORPHINE 4 MG/ML SYR IV PRN (20:02)
[2020-05-11] MEDS: NORGESTREL ETHINYL ESTRADIOL PO SCH (21:00)
[2020-05-11] MEDS: FOLIC ACID 1 MG TABLET PO SCH (21:28)
[2020-05-11] MEDS ORDERED: NA CHLORIDE 0.9% 250 ML ONE (23:05)
[2020-05-12 04:04] LABS: Absolute Lymphocytes (CBC) 0.4 K/uL (0.7-4.9); Basophils % 0.1 % (0-1.3); Hematocrit 34.7 % (36.0-45.0); Lymphocytes % 4.5 % (15.3-44.8); MPV 10.9 fL (7.6-11.3); RBC Red Blood Cell Count 4.12 M/uL (3.86-4.86)
[2020-05-12 04:34] LABS: ALT/SGPT 53 U/L (12-78); AST/SGOT 27 U/L (15-37); Albumin 2.6 g/dL (3.4-5.0); Alkaline Phosphatase 68 U/L (45-117); BUN Blood Urea Nitrogen 10 mg/dL (7-18); Bicarbonate 25 mmol/L (21-32); Bilirubin Direct < 0.1 mg/dL (0-0.2); Bilirubin Total 0.3 mg/dL (0.2-1.0); Glucose Level 212 mg/dL (74-106); Sodium Level 143 mmol/L (136-145)
[2020-05-12] MEDS: IVERMECTIN 3 MG TABLET PO SCH (08:50)
[2020-05-12] MEDS: FAMOTIDINE 20 MG TAB PO SCH ×2 (08:51→21:33)
[2020-05-12] MEDS: INSULIN -REGULAR HUMAN 50 UNIT/0.5 ML ML SQ SCH ×4 (08:51→21:00)
[2020-05-12] MEDS: ENOXAPARIN 40 MG/0.4 ML SQ SCH (08:51)
[2020-05-12] MEDS: ZINC SULFATE 220 MG CAP PO SCH (08:51)
[2020-05-12] MEDS: BUPROPION HCL XL 150 MG TAB PO SCH ×2 (08:52→21:33)
[2020-05-12] MEDS: METHYLPREDNISOLONE 125 MG INJ IV SCH ×2 (08:52→21:33)
[2020-05-12] MEDS: VITAMIN D 5,000 UNIT CAP PO SCH (08:52)
[2020-05-12] MEDS: ASCORBIC ACID 500 MG TABLET PO SCH ×4 (08:52→21:33)
[2020-05-12] MEDS: THIAMINE 200 MG/2 ML INJ IVP SCH ×2 (08:52→21:34)
[2020-05-12] MEDS: Remdesivir 100 MG in NA CHLORIDE 0.9% 250 ML IV SCH (11:00)
[2020-05-12] MEDS: NA CHLORIDE 0.9% 1,000 ML IV SCH (14:21)
--- NOTE | 2020-05-12 14:37 | P.PN ---
Subjective Date of Service: 05/12/20 Chief Complaint: Acute hypoxemic respiratory failure, COVID-19 Pneumonia Patient report increase in shortness of breath. She is now on high-flow oxygen. Patient states he feels better than yesterday. Physical Examination - Vital Signs Temperature: 97.8 F Blood Pressure: 109/57 Pulse: 67 Respirations: 28 Pulse Ox (%): 96 - Physical Exam General: Alert, Mild distress HEENT: Other (High-flow oxygen) Neck: JVD not distended Cardiovascular: No edema, Regular rate/rhythm, Normal S1 S2 Gastrointestinal: Soft and benign, Non-distended Musculoskeletal: No swelling Integumentary: No rashes Neurological: Other (No focal motor deficit.) Assessment And Plan - Current Problems (Diagnosis) (1) Acute respiratory failure with hypoxia Current Visit: Yes Status: Acute (2) Pneumonia due to COVID-19 virus Current Visit: Yes Status: Acute (3) Asthma Current Visit: Yes Status: Acute (4) Thrombocytopenia Current Visit: Yes Status: Acute Physician Review Additional Text: -patient now on high-flow oxygen -status post Ivermectin -status post convalescent plasma. -patient receiving Remdesivir. -continue solumedrol, vitamin supplementation, lovenox -patient is on methotrexate for nonspecific vasculitis. -start full-dose anticoagulation with Eliquis
[2020-05-12] MEDS: ONDANSETRON 4 MG/2 ML VIAL IV PRN (20:39)
[2020-05-12] MEDS: NORGESTREL ETHINYL ESTRADIOL PO SCH (21:00)
[2020-05-12] MEDS: FOLIC ACID 1 MG TABLET PO SCH (21:33)
[2020-05-13] MEDS: NA CHLORIDE 0.9% 1,000 ML IV SCH ×2 (02:01→15:08)
[2020-05-13 03:53] LABS: Absolute Lymphocytes (CBC) 0.4 K/uL (0.7-4.9); Basophils % 0.1 % (0-1.3); Hematocrit 36.7 % (36.0-45.0); Lymphocytes % 5.8 % (15.3-44.8); MPV 11.1 fL (7.6-11.3); RBC Red Blood Cell Count 4.38 M/uL (3.86-4.86)
[2020-05-13 04:14] LABS: ALT/SGPT 57 U/L (12-78); AST/SGOT 26 U/L (15-37); Albumin 2.5 g/dL (3.4-5.0); Alkaline Phosphatase 65 U/L (45-117); BUN Blood Urea Nitrogen 12 mg/dL (7-18); Bicarbonate 25 mmol/L (21-32); Bilirubin Direct 0.1 mg/dL (0-0.2); Bilirubin Total 0.3 mg/dL (0.2-1.0); Glucose Level 196 mg/dL (74-106); Potassium 3.9 mmol/L (3.5-5.1); Sodium Level 142 mmol/L (136-145)
[2020-05-13] MEDS ORDERED: POTASSIUM CL SA 10 MEQ TAB PO ONE (05:41)
[2020-05-13] MEDS: FAMOTIDINE 20 MG TAB PO SCH ×2 (09:27→20:59)
[2020-05-13] MEDS: METHYLPREDNISOLONE 125 MG INJ IV SCH ×2 (09:27→20:58)
[2020-05-13] MEDS: INSULIN -REGULAR HUMAN 50 UNIT/0.5 ML ML SQ SCH ×4 (09:28→21:21)
[2020-05-13] MEDS: ASCORBIC ACID 500 MG TABLET PO SCH ×4 (09:28→20:59)
[2020-05-13] MEDS: BUPROPION HCL XL 150 MG TAB PO SCH ×2 (09:28→20:58)
[2020-05-13] MEDS: ENOXAPARIN 40 MG/0.4 ML SQ SCH (09:29)
[2020-05-13] MEDS: THIAMINE HCL 100 MG TABLET PO SCH (09:29)
[2020-05-13] MEDS: ZINC SULFATE 220 MG CAP PO SCH (09:29)
[2020-05-13] MEDS: VITAMIN D 5,000 UNIT CAP PO SCH (09:29)
[2020-05-13] MEDS: Remdesivir 100 MG in NA CHLORIDE 0.9% 250 ML IV SCH (09:29)
--- NOTE | 2020-05-13 14:09 | P.PN ---
Subjective Date of Service: 05/13/20 Chief Complaint: Acute hypoxemic respiratory failure, COVID-19 Pneumonia Patient reports feeling better today. She is now on high-flow oxygen and 50% FiO2. Physical Examination - Vital Signs Temperature: 99.5 F Blood Pressure: 121/70 Pulse: 60 Respirations: 16 Pulse Ox (%): 91 - Physical Exam General: Alert, Mild distress Neck: JVD not distended Respiratory: Crackles/rales Cardiovascular: No edema, Regular rate/rhythm Gastrointestinal: Non-distended Musculoskeletal: No swelling, No tenderness Integumentary: No rashes Neurological: Other (No focal motor deficit) Assessment And Plan - Current Problems (Diagnosis) (1) Acute respiratory failure with hypoxia Current Visit: Yes Status: Acute (2) Pneumonia due to COVID-19 virus Current Visit: Yes Status: Acute (3) Asthma Current Visit: Yes Status: Acute (4) Thrombocytopenia Current Visit: Yes Status: Acute Physician Review Additional Text: -wean oxygen as tolerated -status post Ivermectin -status post convalescent plasma. -patient receiving Remdesivir day 3. -continue solumedrol, vitamin supplementation, lovenox -patient is on methotrexate for nonspecific vasculitis. -continue Eliquis
[2020-05-13] MEDS: FOLIC ACID 1 MG TABLET PO SCH (20:57)
[2020-05-13] MEDS: NORGESTREL ETHINYL ESTRADIOL PO SCH (21:00)
[2020-05-14] MEDS: ACETAMINOPHEN 500 MG TAB PO PRN (00:44)
[2020-05-14] MEDS: BENZONATATE 100 MG CAP PO PRN ×2 (00:48→20:48)
[2020-05-14] MEDS: NA CHLORIDE 0.9% 1,000 ML IV SCH ×2 (03:27→14:53)
[2020-05-14 05:16] LABS: ALT/SGPT 72 U/L (12-78); AST/SGOT 23 U/L (15-37); Albumin 2.4 g/dL (3.4-5.0); Alkaline Phosphatase 57 U/L (45-117); BUN Blood Urea Nitrogen 12 mg/dL (7-18); Bicarbonate 26 mmol/L (21-32); Bilirubin Direct 0.2 mg/dL (0-0.2); Bilirubin Total 0.4 mg/dL (0.2-1.0); Glucose Level 224 mg/dL (74-106); Potassium 4.1 mmol/L (3.5-5.1); Protein, Total 5.5 g/dL (6.4-8.2); Sodium Level 140 mmol/L (136-145)
[2020-05-14] MEDS: BUPROPION HCL XL 150 MG TAB PO SCH ×2 (08:40→20:47)
[2020-05-14] MEDS: VITAMIN D 5,000 UNIT CAP PO SCH (08:41)
[2020-05-14] MEDS: ZINC SULFATE 220 MG CAP PO SCH (08:41)
[2020-05-14] MEDS: METHYLPREDNISOLONE 125 MG INJ IV SCH ×2 (08:41→20:48)
[2020-05-14] MEDS: ASCORBIC ACID 500 MG TABLET PO SCH ×4 (08:41→20:48)
[2020-05-14] MEDS: THIAMINE HCL 100 MG TABLET PO SCH (08:41)
[2020-05-14] MEDS: FAMOTIDINE 20 MG TAB PO SCH ×2 (08:41→20:48)
[2020-05-14] MEDS: ENOXAPARIN 40 MG/0.4 ML SQ SCH (08:41)
[2020-05-14] MEDS: Remdesivir 100 MG in NA CHLORIDE 0.9% 250 ML IV SCH (08:42)
[2020-05-14] MEDS: INSULIN -REGULAR HUMAN 50 UNIT/0.5 ML ML SQ SCH ×4 (08:42→20:47)
[2020-05-14] MEDS: FOLIC ACID 1 MG TABLET PO SCH (20:48)
[2020-05-14] MEDS: NORGESTREL ETHINYL ESTRADIOL PO SCH (20:48)
[2020-05-15 04:25] LABS: ALT/SGPT 77 U/L (12-78); AST/SGOT 17 U/L (15-37); Albumin 2.4 g/dL (3.4-5.0); Alkaline Phosphatase 53 U/L (45-117); Bilirubin Direct 0.2 mg/dL (0-0.2); Bilirubin Total 0.6 mg/dL (0.2-1.0); Protein, Total 5.5 g/dL (6.4-8.2)
[2020-05-15] MEDS: ACETAMINOPHEN 500 MG TAB PO PRN ×2 (05:14→21:21)
[2020-05-15] MEDS: ENOXAPARIN 40 MG/0.4 ML SQ SCH (08:47)
[2020-05-15] MEDS: ZINC SULFATE 220 MG CAP PO SCH (08:47)
[2020-05-15] MEDS: VITAMIN D 5,000 UNIT CAP PO SCH (08:47)
[2020-05-15] MEDS: ASCORBIC ACID 500 MG TABLET PO SCH ×4 (08:47→21:22)
[2020-05-15] MEDS: METHYLPREDNISOLONE 125 MG INJ IV SCH ×2 (08:48→21:22)
[2020-05-15] MEDS: THIAMINE HCL 100 MG TABLET PO SCH (08:48)
[2020-05-15] MEDS: FAMOTIDINE 20 MG TAB PO SCH ×2 (08:48→21:22)
[2020-05-15] MEDS: BUPROPION HCL XL 150 MG TAB PO SCH ×2 (08:48→21:22)
[2020-05-15] MEDS: INSULIN -REGULAR HUMAN 50 UNIT/0.5 ML ML SQ SCH ×4 (08:49→21:26)
[2020-05-15] MEDS: NA CHLORIDE 0.9% 1,000 ML IV SCH ×2 (08:51→23:38)
[2020-05-15] MEDS: Remdesivir 100 MG in NA CHLORIDE 0.9% 250 ML IV SCH (09:34)
[2020-05-15] MEDS ORDERED: PROMETHAZINE INJ 25 MG/ML AMP IV PRN (12:10)
--- NOTE | 2020-05-15 12:47 | P.PN ---
Subjective Date of Service: 05/15/20 Chief Complaint: Acute hypoxemic respiratory failure, COVID-19 Pneumonia Patient reports feeling better. She reports improved appetite. Her oxygen requirement is decreasing. Physical Examination - Vital Signs Temperature: 98.6 F Blood Pressure: 156/95 Pulse: 55 Respirations: 22 Pulse Ox (%): 92 - Physical Exam General: Alert, In no apparent distress, Oriented x3 Cardiovascular: No edema, Regular rate/rhythm Gastrointestinal: Soft and benign, Non-distended Musculoskeletal: No swelling Integumentary: No rashes Neurological: Other (No focal motor deficit.) - Studies Microbiology Data (last 24 hrs): 05/09/20 14:30 Blood - Blood Aerobic Blood Culture - Final No growth in 5 days. 05/09/20 14:30 Blood - Blood Anaerobic Blood Culture - Final No growth in 5 days. 05/09/20 14:45 Blood - Blood Aerobic Blood Culture - Final No growth in 5 days. 05/09/20 14:45 Blood - Blood Anaerobic Blood Culture - Final No growth in 5 days. Assessment And Plan - Current Problems (Diagnosis) (1) Acute respiratory failure with hypoxia Current Visit: Yes Status: Acute (2) Pneumonia due to COVID-19 virus Current Visit: Yes Status: Acute (3) Asthma Current Visit: Yes Status: Acute (4) Thrombocytopenia Current Visit: Yes Status: Acute Physician Review Additional Text: -patient is requiring less oxygen. -wean from high-flow oxygen to oxygen by nasal cannula as tolerated. -status post Ivermectin -status post convalescent plasma. -status post Remdesivir. -continue solumedrol, vitamin supplementation, lovenox -patient is on methotrexate for nonspecific vasculitis. -continue Eliquis. -anticipating discharge within the next couple of days when she is able to tolerate 4 L of oxygen by nasal cannula.
--- NOTE | 2020-05-15 12:50 | P.PN ---
Subjective Date of Service: 05/14/20 Chief Complaint: Acute hypoxemic respiratory failure, COVID-19 Pneumonia Patient states she is feeling better. She is tolerating low oxygen flow rates. Physical Examination - Vital Signs Temperature: 98.6 F Blood Pressure: 156/95 Pulse: 55 Respirations: 22 Pulse Ox (%): 92 - Physical Exam General: Alert, In no apparent distress, Oriented x3 Neck: JVD not distended Respiratory: Normal air movement Cardiovascular: No edema, Regular rate/rhythm Gastrointestinal: Non-distended Musculoskeletal: No swelling Integumentary: No rashes Neurological: Other (No focal motor deficit.) - Studies Microbiology Data (last 24 hrs): 05/09/20 14:30 Blood - Blood Aerobic Blood Culture - Final No growth in 5 days. 05/09/20 14:30 Blood - Blood Anaerobic Blood Culture - Final No growth in 5 days. 05/09/20 14:45 Blood - Blood Aerobic Blood Culture - Final No growth in 5 days. 05/09/20 14:45 Blood - Blood Anaerobic Blood Culture - Final No growth in 5 days. Assessment And Plan - Current Problems (Diagnosis) (1) Acute respiratory failure with hypoxia Current Visit: Yes Status: Acute (2) Pneumonia due to COVID-19 virus Current Visit: Yes Status: Acute (3) Asthma Current Visit: Yes Status: Acute (4) Thrombocytopenia Current Visit: Yes Status: Acute Physician Review Additional Text: -wean from high-flow oxygen to oxygen by nasal cannula as tolerated. -status post Ivermectin -status post convalescent plasma. -status post Remdesivir. -continue solumedrol, vitamin supplementation, lovenox -patient is on methotrexate for nonspecific vasculitis. -continue Eliquis.
[2020-05-15] MEDS: BENZONATATE 100 MG CAP PO PRN (21:21)
[2020-05-15] MEDS: FOLIC ACID 1 MG TABLET PO SCH (21:22)
[2020-05-15] MEDS: NORGESTREL ETHINYL ESTRADIOL PO SCH (21:43)
[2020-05-16 06:54] LABS: ALT/SGPT 74 U/L (12-78); AST/SGOT 13 U/L (15-37); Albumin 2.6 g/dL (3.4-5.0); Alkaline Phosphatase 51 U/L (45-117); BUN Blood Urea Nitrogen 11 mg/dL (7-18); Bicarbonate 26 mmol/L (21-32); Bilirubin Total 0.6 mg/dL (0.2-1.0); Glucose Level 293 mg/dL (74-106); Potassium 3.9 mmol/L (3.5-5.1); Protein, Total 5.7 g/dL (6.4-8.2); Sodium Level 140 mmol/L (136-145)
[2020-05-16 07:03] LABS: Absolute Lymphocytes (CBC) 0.5 K/uL (0.7-4.9); Basophils % 0.1 % (0-1.3); Hematocrit 38.5 % (36.0-45.0); Lymphocytes % 5.2 % (15.3-44.8); RBC Red Blood Cell Count 4.56 M/uL (3.86-4.86)
[2020-05-16] MEDS ORDERED: POTASSIUM 25 MEQ EFFERV TAB PO ONE (07:43)
[2020-05-16] MEDS: THIAMINE HCL 100 MG TABLET PO SCH (09:09)
[2020-05-16] MEDS: ENOXAPARIN 40 MG/0.4 ML SQ SCH (09:09)
[2020-05-16] MEDS: METHYLPREDNISOLONE 125 MG INJ IV SCH ×2 (09:09→20:22)
[2020-05-16] MEDS: VITAMIN D 5,000 UNIT CAP PO SCH (09:10)
[2020-05-16] MEDS: ZINC SULFATE 220 MG CAP PO SCH (09:10)
[2020-05-16] MEDS: BUPROPION HCL XL 150 MG TAB PO SCH ×2 (09:10→20:22)
[2020-05-16] MEDS: INSULIN -REGULAR HUMAN 50 UNIT/0.5 ML ML SQ SCH ×4 (09:11→20:23)
[2020-05-16] MEDS: ASCORBIC ACID 500 MG TABLET PO SCH ×4 (09:11→20:22)
[2020-05-16] MEDS: FAMOTIDINE 20 MG TAB PO SCH ×2 (09:11→20:22)
[2020-05-16 09:12] LABS: Blood Morphology Comment NOT SEEN (NOT SEEN); Platelet Estimate ADEQ; White Blood Cell Scan OK (OK)
[2020-05-16] MEDS: NA CHLORIDE 0.9% 1,000 ML IV SCH (11:23)
--- NOTE | 2020-05-16 13:16 | P.PN ---
Subjective Date of Service: 05/16/20 Chief Complaint: Acute hypoxemic respiratory failure, COVID-19 Pneumonia Patient states she is feeling better. She is not tolerating 6 L of oxygen by nasal cannula. Physical Examination - Vital Signs Temperature: 98.3 F Blood Pressure: 104/55 Pulse: 57 Respirations: 22 Pulse Ox (%): 91 - Physical Exam General: Alert, In no apparent distress, Oriented x3 Neck: JVD not distended Respiratory: Other (Nonlabored breathing.) Cardiovascular: Regular rate/rhythm, Normal S1 S2 Gastrointestinal: Soft and benign, Non-distended Musculoskeletal: No swelling Integumentary: No rashes Neurological: Other (No focal motor deficit.) Assessment And Plan - Current Problems (Diagnosis) (1) Acute respiratory failure with hypoxia Current Visit: Yes Status: Acute (2) Pneumonia due to COVID-19 virus Current Visit: Yes Status: Acute (3) Asthma Current Visit: Yes Status: Acute (4) Thrombocytopenia Current Visit: Yes Status: Acute Physician Review Additional Text: -wean down oxygen as tolerated. -status post Ivermectin -status post convalescent plasma. -status post Remdesivir. -continue solumedrol, vitamin supplementation, lovenox -patient is on methotrexate for nonspecific vasculitis. -continue Eliquis. -discharge to home with home oxygen once she is able to tolerate 4 L by nasal cannula.
[2020-05-16] MEDS: BENZONATATE 100 MG CAP PO PRN (20:22)
[2020-05-16] MEDS: FOLIC ACID 1 MG TABLET PO SCH (20:22)
[2020-05-16] MEDS: ACETAMINOPHEN 500 MG TAB PO PRN (20:22)
[2020-05-16] MEDS: NORGESTREL ETHINYL ESTRADIOL PO SCH (20:23)
[2020-05-17 04:30] LABS: BUN Blood Urea Nitrogen 12 mg/dL (7-18); Bicarbonate 28 mmol/L (21-32); Glucose Level 349 mg/dL (74-106); Potassium 4.7 mmol/L (3.5-5.1); Sodium Level 136 mmol/L (136-145)
[2020-05-17] MEDS: THIAMINE HCL 100 MG TABLET PO SCH (09:14)
[2020-05-17] MEDS: VITAMIN D 5,000 UNIT CAP PO SCH (09:14)
[2020-05-17] MEDS: INSULIN -REGULAR HUMAN 50 UNIT/0.5 ML ML SQ SCH ×4 (09:14→21:09)
[2020-05-17] MEDS: ZINC SULFATE 220 MG CAP PO SCH (09:14)
[2020-05-17] MEDS: METHYLPREDNISOLONE 125 MG INJ IV SCH ×2 (09:14→20:59)
[2020-05-17] MEDS: ENOXAPARIN 40 MG/0.4 ML SQ SCH (09:15)
[2020-05-17] MEDS: FAMOTIDINE 20 MG TAB PO SCH ×2 (09:15→20:59)
[2020-05-17] MEDS: BUPROPION HCL XL 150 MG TAB PO SCH ×2 (09:15→20:59)
[2020-05-17] MEDS: ASCORBIC ACID 500 MG TABLET PO SCH ×4 (09:15→20:59)
--- NOTE | 2020-05-17 16:25 | P.PN ---
Subjective Date of Service: 05/17/20 Chief Complaint: Acute hypoxemic respiratory failure, COVID-19 Pneumonia Patient doing much better today. She is not tolerating 2-4 L of oxygen by nasal cannula. Physical Examination - Vital Signs Temperature: 98.3 F Blood Pressure: 108/62 Pulse: 86 Respirations: 19 Pulse Ox (%): 92 - Physical Exam General: Alert, In no apparent distress, Oriented x3 Neck: JVD not distended Respiratory: Other (Nonlabored breathing.) Cardiovascular: No edema, Regular rate/rhythm Gastrointestinal: Soft and benign, Non-distended Musculoskeletal: No swelling Integumentary: No rashes Neurological: Other (No focal motor deficit.) Assessment And Plan - Current Problems (Diagnosis) (1) Acute respiratory failure with hypoxia Current Visit: Yes Status: Acute (2) Pneumonia due to COVID-19 virus Current Visit: Yes Status: Acute (3) Asthma Current Visit: Yes Status: Acute (4) Thrombocytopenia Current Visit: Yes Status: Acute Physician Review Additional Text: -patient not tolerating 2-4 L of oxygen by nasal canula -status post Ivermectin -status post convalescent plasma. -status post Remdesivir. -continue solumedrol, vitamin supplementation, lovenox -patient is on methotrexate for nonspecific vasculitis. -continue Eliquis. -awaiting for home oxygen to be available for discharge.
--- NOTE | 2020-05-17 16:37 | P.DS ---
Admission Date: 05/09/20 Discharge Date: 05/18/20 Reason for Admission: Acute hypoxemic respiratory failure, COVID-19 Pneumonia - Problems (1) Acute respiratory failure with hypoxia Current Visit: Yes Status: Acute (2) Pneumonia due to COVID-19 virus Current Visit: Yes Status: Acute (3) Asthma Current Visit: Yes Status: Acute (4) Thrombocytopenia Current Visit: Yes Status: Acute Brief History of Present Illness: 39-year-old woman with a history of type 2 diabetes presented to the emergency department with a complaint of progressive shortness of breath, nonproductive cough, fever and chills, nausea and vomiting and diarrhea. Patient tested positive for COVID 19 1 week prior. Chest x-ray done in the emergency department demonstrated bilateral infiltrate consistent with COVID pneumonia. She was requiring 2 L of oxygen by nasal cannula. She was subsequently admitted for further management of COVID pneumonia with hypoxia. Hospital Course: Patient admitted to the medical floor and started on IV steroid, vitamin-C, vitamin-B and C supplementation. Her respiratory condition got worse and required high-flow oxygen. Patient was transfused 1 unit convalescent plasma and treated with IV Remdesivir. Patient respiratory condition then improved with treatment. Oxygen was weaned down from high-flow. She is currently tolerating 2 L by nasal cannula with good oxygen saturation. Patient has clinically improved. She states she feels much better. She states her appetite has improved. She is tolerating her meals. Vitals are stable. She is deemed clinically stable for discharge. Vital Signs/Physical Exam: Temp Pulse Resp BP Pulse Ox 98.3 F 86 19 108/62 92 05/17/20 16:25 05/17/20 16:25 05/17/20 16:25 05/17/20 16:25 05/17/20 16:25 General: Alert, In no apparent distress Neck: JVD not distended Respiratory: Other (No labored breathing.) Cardiovascular: Regular rate/rhythm Gastrointestinal: Soft and benign, Non-distended Musculoskeletal: No swelling Integumentary: No rashes Neurological: Other (No focal motor deficit) Laboratory Data at Discharge: WBC 10.20 K/uL (4.3-10.9) D 05/16/20 05:25 Hgb 12.8 g/dL (12.0-15.0) 05/16/20 05:25 Hct 38.5 % (36.0-45.0) 05/16/20 05:25 Plt Count 205 K/uL (152-406) D 05/16/20 05:25 Sodium 136 mmol/L (136-145) 05/17/20 03:13 Potassium 4.7 mmol/L (3.5-5.1) 05/17/20 03:13 BUN 12 mg/dL (7-18) 05/17/20 03:13 Creatinine 0.63 mg/dL (0.55-1.3) 05/17/20 03:13 Glucose 349 mg/dL (74-106) H 05/17/20 03:13 Magnesium 2.3 mg/dL (1.8-2.4) 05/11/20 03:15 Total Bilirubin 0.6 mg/dL (0.2-1.0) 05/16/20 05:25 AST 13 U/L (15-37) L 05/16/20 05:25 ALT 74 U/L (12-78) 05/16/20 05:25 Alkaline Phosphatase 51 U/L (45-117) 05/16/20 05:25 Home Medications: Albuterol Inhaler [Ventolin Inhaler*] 2 puff IH Q4HP PRN 05/09/20 Bupropion HCl [Wellbutrin Xl] 150 mg PO BID 05/09/20 Cetirizine HCl [Zyrtec*] 5 mg PO BEDTIME 05/09/20 Folic Acid 1 mg PO BEDTIME 05/09/20 Methotrexate [Methotrexate*] 12.5 mg PO SEECOM 05/09/20 Norgestrel-Ethinyl Estradiol [Cryselle-28 Tablet] 1 tab PO BEDTIME 05/09/20 Diet: ADA Activity: Ad paola Followup: NONE,NONE [Primary Care Provider] -
[2020-05-17] MEDS: FOLIC ACID 1 MG TABLET PO SCH (20:59)
[2020-05-17] MEDS: NORGESTREL ETHINYL ESTRADIOL PO SCH (21:00)
[2020-05-18 04:30] LABS: BUN Blood Urea Nitrogen 14 mg/dL (7-18); Bicarbonate 27 mmol/L (21-32); C-Reactive Protein < 2.90 mg/L (<3.00); Ferritin 39.9 ng/mL (8-388); Glucose Level 337 mg/dL (74-106); Potassium 4.4 mmol/L (3.5-5.1); Sodium Level 134 mmol/L (136-145)
[2020-05-18] MEDS: BUPROPION HCL XL 150 MG TAB PO SCH ×2 (08:06→20:33)
[2020-05-18] MEDS: FAMOTIDINE 20 MG TAB PO SCH ×2 (08:07→20:34)
[2020-05-18] MEDS: VITAMIN D 5,000 UNIT CAP PO SCH (08:07)
[2020-05-18] MEDS: THIAMINE HCL 100 MG TABLET PO SCH (08:08)
[2020-05-18] MEDS: ZINC SULFATE 220 MG CAP PO SCH (08:08)
[2020-05-18] MEDS: METHYLPREDNISOLONE 125 MG INJ IV SCH (08:09)
[2020-05-18] MEDS: ASCORBIC ACID 500 MG TABLET PO SCH ×4 (08:09→20:34)
[2020-05-18] MEDS: ENOXAPARIN 40 MG/0.4 ML SQ SCH (08:09)
[2020-05-18] MEDS: INSULIN -REGULAR HUMAN 50 UNIT/0.5 ML ML SQ SCH ×4 (08:12→20:56)
[2020-05-18] MEDS ORDERED: GLUCAGON 1 MG/VIAL IM PRN (18:45)
[2020-05-18] MEDS ORDERED: D50W 25 GM/50 ML VIAL IV PRN (18:48)
--- NOTE | 2020-05-18 18:49 | P.PN ---
Subjective Date of Service: 05/18/20 Chief Complaint: Acute hypoxemic respiratory failure, COVID-19 Pneumonia Subjective: Improving (doing well, anxious to go home, reports has power at home, awaiting home o2 delivery) Review of Systems 10-point ROS is otherwise unremarkable Physical Examination - Vital Signs Temperature: 98.4 F Blood Pressure: 161/78 Pulse: 93 Respirations: 20 Pulse Ox (%): 94 Assessment & Plan Physician Review Additional Text: Physical Exam General: AAOx3, NAD HEENT: normal conjunctiva, sclera anicteric CV: RRR, no edema Pulm: nonlabored respirations on 2L NC Abd: soft, NTND Ext: no edema, no rash Problem List Acute respiratory failure with hypoxia Pneumonia due to COVID-19 virus Asthma Thrombocytopenia improving, tolerating ~2L NC now, ambulating ok, with some dyspnea / hypoxia but improves s/p ivermectin, convalescent plasma, remdesevir decrease solumedrol lantus tonight. sliding scale insulin as well continue eliquis awaiting home O2 patient reports has power at house this morning Dispo: pending home O2 delivery, unlikely today given weather Time Spent Managing Pts Care (In Minutes): 40
[2020-05-18] MEDS: FOLIC ACID 1 MG TABLET PO SCH (20:33)
[2020-05-18] MEDS: NORGESTREL ETHINYL ESTRADIOL PO SCH (20:39)
[2020-05-18] MEDS: METHYLPREDNISOLONE 40 MG INJ IV SCH (20:39)
[2020-05-18] MEDS: BENZONATATE 100 MG CAP PO PRN (20:53)
[2020-05-18] MEDS ORDERED: INSULIN GLARGINE 100 UNITS/ML SQ SCH (21:00)
[2020-05-19] MEDS: ZINC SULFATE 220 MG CAP PO SCH (08:53)
[2020-05-19] MEDS: BUPROPION HCL XL 150 MG TAB PO SCH ×2 (08:53→21:12)
[2020-05-19] MEDS: THIAMINE HCL 100 MG TABLET PO SCH (08:53)
[2020-05-19] MEDS: METHYLPREDNISOLONE 40 MG INJ IV SCH ×2 (08:53→21:14)
[2020-05-19] MEDS: ASCORBIC ACID 500 MG TABLET PO SCH ×4 (08:53→21:12)
[2020-05-19] MEDS: FAMOTIDINE 20 MG TAB PO SCH ×2 (08:53→21:12)
[2020-05-19] MEDS: ENOXAPARIN 40 MG/0.4 ML SQ SCH (08:54)
[2020-05-19] MEDS: INSULIN -REGULAR HUMAN 50 UNIT/0.5 ML ML SQ SCH ×4 (08:54→21:13)
--- NOTE | 2020-05-19 17:35 | P.PN ---
Subjective Date of Service: 05/19/20 Chief Complaint: Acute hypoxemic respiratory failure, COVID-19 Pneumonia Subjective: Improving (Doing well, on 1 L nasal cannula. Awaiting her home O2 set up) Review of Systems 10-point ROS is otherwise unremarkable Physical Examination - Vital Signs Temperature: 97.6 F Blood Pressure: 120/58 Pulse: 86 Respirations: 18 Pulse Ox (%): 93 Assessment & Plan Physician Review Additional Text: Physical Exam General: AAOx3, NAD HEENT: normal conjunctiva, sclera anicteric CV: RRR, no edema Pulm: nonlabored respirations on 1L NC Abd: soft, NTND Ext: no edema, no rash Problem List Acute respiratory failure with hypoxia Pneumonia due to COVID-19 virus Asthma Thrombocytopenia improving, tolerating ~1L NC now, ambulating ok, with some dyspnea / hypoxia but improves s/p ivermectin, convalescent plasma, remdesevir decreased solumedrol yesterday increase lantus tonight. sliding scale insulin as well continue riley awaiting home O2 patient reports has power at house still states she is looking into finding her own home O2 Dispo: pending home O2 delivery, likely tomorrow Time Spent Managing Pts Care (In Minutes): 30
[2020-05-19] MEDS ORDERED: INSULIN GLARGINE 100 UNITS/ML SQ SCH (21:00)
[2020-05-19] MEDS: NORGESTREL ETHINYL ESTRADIOL PO SCH (21:00)
[2020-05-19] MEDS: FOLIC ACID 1 MG TABLET PO SCH (21:12)
[2020-05-20] MEDS: ENOXAPARIN 40 MG/0.4 ML SQ SCH (07:56)
[2020-05-20] MEDS: THIAMINE HCL 100 MG TABLET PO SCH (07:56)
[2020-05-20] MEDS: VITAMIN D 5,000 UNIT CAP PO SCH (07:57)
[2020-05-20] MEDS: METHYLPREDNISOLONE 40 MG INJ IV SCH (07:57)
[2020-05-20] MEDS: FAMOTIDINE 20 MG TAB PO SCH (07:57)
[2020-05-20] MEDS: ZINC SULFATE 220 MG CAP PO SCH (07:57)
[2020-05-20] MEDS: INSULIN -REGULAR HUMAN 50 UNIT/0.5 ML ML SQ SCH ×2 (07:57→12:00)
[2020-05-20] MEDS: ASCORBIC ACID 500 MG TABLET PO SCH ×2 (07:57→12:00)
[2020-05-20] MEDS: BUPROPION HCL XL 150 MG TAB PO SCH (10:51)
[2020-05-20 10:59] VITALS: O2SAT 94
[2020-05-20 12:00] VITALS: BP 107/57; TEMP 97.5
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
== END 2020-05-20 14:17 | disposition home or self-care (01) | DRG 177 ==
LOC: ER 13:15 → ERHOLD 16:56 → 4TH 18:46 → OBSVTOIN 21:35
PROVIDERS: ADMIT Hospitalist; ATTEND Hospitalist
PROC: XW033E5 Introduction of Remdesivir Anti-infective into Peripheral Vein, Percutaneous Approach, New Technology Group 5 (ICD-10-PCS; principal; 2020-05-11)
PROC: XW13325 Transfusion of Convalescent Plasma (Nonautologous) into Peripheral Vein, Percutaneous Approach, New Technology Group 5 (ICD-10-PCS; 2020-05-11)
DX: U07.1 COVID-19 (principal); J12.82 Pneumonia due to coronavirus disease 2019; J96.01 Acute respiratory failure with hypoxia; J45.909 Unspecified asthma, uncomplicated; F32.9 Major depressive disorder, single episode, unspecified; F41.9 Anxiety disorder, unspecified; I77.6 Arteritis, unspecified; D69.6 Thrombocytopenia, unspecified; Z79.4 Long term (current) use of insulin; Z88.1 Allergy status to other antibiotic agents; Z79.52 Long term (current) use of systemic steroids; Z79.899 Other long term (current) drug therapy
CPT/HCPCS: 36415; 36430; 71045; 80048; 80053; 80076; 82248; 82565; 82728; 82947; 83036; 83605; 83735; 84145; 85025; 86140; 86900; 86901; 86927; 87040; 93005; 94002; 94003; 94010; 94660; 94760; 96361; 96374; 96375; 99285; J1650; J1815; J2405; J2550; J2920; J2930; J3411; J7030; J7050

== ENCOUNTER 2020-06-05 17:49 | Emergency (ER) | payer BC, SELFPAY ==
--- OUTSIDE RECORDS SUMMARY | 2020-06-05 17:51 | XMS REPORT | Continuity of Care Document ---
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 M emoria agustín 03:46:02 l vasculitis Justen n ANCA-negat agustín vasculitis Active Problem 05/11/2020 Jossie Najam Rash Diagnosis Active 2020-02-10 Mem oria 03:45:55 l Rash [place] Active Diagnosis 02/10/2020 Jossie Najam Chronic Diagnosis Active 2020-02-10 Me moria cough 03:45:55 l Chronic [place] cough Active Diagnosis 02/10/2020 Jossie Najam Counseling Diagnosis Active 2020-02-10 Memoria NOS 03:45:55 l [place] Counseling NOS Active Diagnosis 02/10/2020 Jossie Najam Allergies, Adverse Reactions, Alerts Allergy Allergy Status Severity Reaction(s) Onset Inactive Treating Comm ents Source Name Type Date Date Clinician Erythrom Erythrom Active Info Not 2019-04 Stephen kel ycin ycin Available 04-10 l 00:00: [place] 00 Medications Ordered Filled Start Stop Current Ordering Indication Dosage Frequency Signature Comments Components Source Medication Medication Date Date Medication? Clinician (SIG) Name Name Folic Acid 2019-04 Yes Jossie as Memor ia 2-29 Najam directed l 00:00: [place] 00 Levocetiriz 2019-04 Yes Jossie 1 tablet Memoria ine 1-10 Najam in the l Dihydrochlo 03:45: evening Her ride 55 Levonorgest 2020-1 Yes Jossie as Stephen kel rel 1-10 Najam directed l 03:45: [place] 55 Acyclovir 2020-1 Yes Jossie 1 capsule [...] Diastolic (mm Hg) 2019-10-20 18:00:00 Mem orial [place] Systolic (mm Hg) 2019-10-20 18:00:00 Stephen rial [place] Weight 2019-10-20 18:00:00 [facility] Russ[place] Procedures This patient has no known procedures. Encounters Start End Encounter Admission Attending Care Care Encounter Source Date/Time Date/Time Type Type Clinicians Facility Department ID 2020-06-01 2020-06-01 Outpatient [facility] [id number] 00:00:00 00:00:00 , Sabiha [id number] Gloria [id number] 2020-05-26 2020-05-26 BASIL Tejeda [id number] 00:00:00 00:00:00 Shobha Araujo [id number] Rufina [id number] Profward [id number] [address] 2020-05-10 2020-05-10 Outpatient [facility] [id number] Memoria 13:37:00 13:37:00 Rheumatol Rheumatolog l ogy y [facility] 2020-04-26 2020-04-26 Office Stephanie [facility] [id number] 10:00:00 10:30:00 Visit Shobha [place] [id number] [place] [id number] Zakiya [id number] [address] 2020-04-26 2020-04-26 [facility] [id number] 00:00:00 00:00:00 , Sabiha [id number] Gloria [id number] 2020-03-30 2020-03-30 Outpatient [facility] [id number] Memoria 10:27:00 10:27:00 Rheumatol Rheumatolog l ogy y [facility] 2020-03-11 2020-03-11 Outpatient [facility] [id number] Memoria 09:26:00 09:26:00 Rheumatol Rheumatolog l ogy y [facility] 2020-03-04 2020-03-04 Outpatient [facility] [id number] Memoria 08:31:00 08:31:00 Rheumatol Rheumatolog l ogy y [facility] 2020-02-09 2020-02-09 Outpatient [facility] [id number] Memoria 13:15:00 13:15:00 Rheumatol Rheumatolog l ogy y [facility] 2019-11-24 2019-11-24 Outpatient [facility] [id number] Memoria 13:11:00 13:11:00 Rheumatol Rheumatolog l ogy y [facility] 2019-11-10 2019-11-10 Outpatient [facility] [id number] Memoria 15:04:00 15:04:00 Rheumatol Rheumatolog l ogy y [facility] 2019-11-10 2019-11-10 [facility] [id number] [facility]:15[facility] 13:15:00 [facility]ol [facility] l [facility] 2019-10-20 2019-10-20 Outpatient [facility] [id number] [facility] 13:00:00 13:00:00 Rheumatol Rheumatolog l [facility] Results This patient has no known results.
--- NOTE | 2020-06-05 19:55 | RAD REPORT ---
EXAM DESCRIPTION: US - Extremity Venous Uni Ltd - 06/05/2020 7:26 pm CLINICAL HISTORY: PAIN COMPARISON: None. TECHNIQUE: Real-time sonographic evaluation of the right lower extremity deep venous systems was per formed. FINDINGS: Normal compressibility, flow augmentation, phasic flow and spontaneous flow are identified in the right lower extremity common femoral, superficial femoral, popliteal and posterior tibial vei ns. No intraluminal filling defects seen. IMPRESSION: No DVT in the right lower extremity.
--- NOTE | 2020-06-05 20:08 | ER ---
Nurse's Notes [facility] Name: Sandie Randhawa Age: 39 yrs Sex: Female : 1980 Arrival Date: 06/05/2020 Time: 17:49 Bed 17 Private MD: Diagnosis: Muscle spasm of calf Presentation: 06/05 18:06 Chief complaint: Patient states: was d/c with COVID 2.5 weeks ago and was told it's iw possible to have blood clots, has had pain in right leg since Sunday getting worse. Coronavirus screen: Client presents with at least one sign or symptom that may indicate coronavirus-19. Client reports previous positive COVID test result. Ebola Screen: Patient negative for fever greater than or equal to 101.5 degrees Fahrenheit, and additional compatible Ebola Virus Disease symptoms Patient denies exposure to infectious person. Patient denies travel to an Ebola-affected area in the 21 days before illness onset. No symptoms or risks identified at this time. Initial Sepsis Screen: Does the patient meet any 2 criteria? No. Patient's initial sepsis screen is negative. Does the patient have a suspected source of infection? No. Patient's initial sepsis screen is negative. Risk Assessment: Do you want to hurt yourself or someone else? Patient reports no desire to harm self or others. Onset of symptoms was 2020. 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 - Social history:: Smoking status: Patient denies any tobacco usage or history of. Screenin:15 Abuse screen: Denies threats or abuse. Nutritional screening: No deficits noted. rb3 Tuberculosis screening: No symptoms or risk factors identified. Fall Risk None identified. Assessment: 18:15 General: Appears uncomfortable, Behavior is calm, cooperative. Pain: Complains of pain rb3 in right leg Pain currently is 10 out of 10 on a pain scale. Neuro: Level of Consciousness is awake, alert, obeys commands, Oriented to person, place, time, situation. Cardiovascular: Patient's skin is warm and dry. Respiratory: Airway is patent Respiratory effort is even, unlabored, Respiratory pattern is regular, symmetrical. GI: No signs and/or symptoms were reported involving the gastrointestinal system. : No signs and/or symptoms were reported regarding the genitourinary system. 19:30 Reassessment: Patient and/or family updated on plan of care and expected duration. Pain ll2 level reassessed. Patient is alert, oriented x 3, equal unlabored respirations, skin warm/dry/pink. Vital Signs: 18:06 BP 107 / 93; Pulse 107; Resp 18; Temp 99.0; Pulse Ox 95% on R/A; Weight 101.15 kg; iw Height 5 ft. 4 in. (162.56 cm); Pain 10/10; 18:06 Body Mass Index 38.28 (101.15 kg, 162.56 cm) iw ED Course: 17:49 Patient arrived in ED. as 17:53 Rere Diehl FNP-C is [facility]. kb 17:53 Adam Carpenter MD is Attending Physician. kb 18:08 Triage completed. iw 18:15 Patient has correct armband on for positive identification. Bed in low position. Call rb3 light in reach. Side rails up X 1. Pulse ox on. NIBP on. 18:15 Arm band placed on right wrist. rb3 18:27 Rhonda Joiner, RN is Primary Nurse. rb3 19:26 US Extremity Venous Unilateral Ltd In Process Unspecified. EDMS Administered Medications: 19:59 Drug: [place] (7.5 mg-325 mg) 1 tabs Route: PO; ll2 Outcome: 20:07 Discharge ordered by . kb 20:18 Patient left the ED. 4 Signatures: Dispatcher [employer] EDMS Rere Diehl FNP-C FNP-Ckb Martinez, Amelia as Suzy Villela RN RN Joe Escudero 4 Alaina Chiang RN RN 2 Rhonda Joiner, RN RN rb3
--- NOTE | 2020-06-05 20:08 | EDPHYS ---
Physician Documentation [facility] Name: Sandie Randhawa Age: 39 yrs Sex: Female : 1980 Arrival Date: 06/05/2020 Time: 17:49 Bed 17 Private MD: JENNIFER Physician Adam Carpenter HPI: 06/06 00:16 This 39 yrs old Female presents to ER via Ambulatory with complaints of r/o kb dvt r calf. 00:16 The patient presents with pain, that is acute, tenderness. The complaints affect the kb right calf. Context: The problem was sustained at home, resulted from an unknown cause, the patient can fully bear weight, the patient is able to ambulate. Onset: The symptoms/episode began/occurred yesterday. Modifying factors: The symptoms are alleviated by nothing. the symptoms are aggravated by movement, flexing foot. Associated signs and symptoms: Pertinent positives: calf tenderness, Pertinent negatives fever, nausea, numbness, rash, swelling, tingling, vomiting, warmth, weakness. Treatment prior to arrival includes: no previous treatment. Severity of symptoms: At their worst the symptoms were moderate, in the emergency department the symptoms are unchanged. The patient has not experienced similar symptoms in the past. The patient has not recently seen a physician. Pt reports right calf pain. Statse she had covid 2 weeks ago and they told her blood clots were possible so she came to make sure she didn't have one. 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 - Social history:: Smoking status: Patient denies any tobacco usage or history of. ROS: 06/06 00:15 Constitutional: Negative for fever, chills, and weight loss, Cardiovascular: Negative kb for chest pain, palpitations, and edema, Respiratory: Negative for shortness of breath, cough, wheezing, and pleuritic chest pain, Abdomen/GI: Negative for abdominal pain, nausea, vomiting, diarrhea, and constipation, Skin: Negative for injury, rash, and discoloration, Neuro: Negative for headache, weakness, numbness, tingling, and seizure. MS/extremity: Positive for pain, tenderness, of the right calf. Exam: 00:15 Constitutional: This is a well developed, well nourished patient who is awake, alert, kb and in no acute distress. Head/Face: Normocephalic, atraumatic. Cardiovascular: Regular rate and rhythm with a normal S1 and S2. No gallops, murmurs, or rubs. No pulse deficits. Respiratory: Lungs have equal breath sounds bilaterally, clear to auscultation. No rales, rhonchi or wheezes noted. No increased work of breathing, no retractions or nasal flaring. Skin: Warm, dry with normal turgor. Normal color with no rashes, no lesions, and no evidence of cellulitis. Neuro: Awake and alert, GCS 15, oriented to person, place, time, and situation. Cranial nerves II-XII grossly intact. Moves all extremities. Sensory grossly intact. Cerebellar exam normal. Normal gait. 00:15 Musculoskeletal/extremity: Extremities: grossly normal except: noted in the right calf: pain, swelling, tenderness, ROM: intact in all extremities, Circulation is intact in all extremities. Sensation intact. Weight bearing: able to fully bear weight. Vital Signs: 06/05 18:06 BP 107 / 93; Pulse 107; Resp 18; Temp 99.0; Pulse Ox 95% on R/A; Weight 101.15 kg; iw Height 5 ft. 4 in. (162.56 cm); Pain 10/10; 18:06 Body Mass Index 38.28 (101.15 kg, 162.56 cm) iw MDM: 18:14 Patient medically screened. kb 06/06 00:14 Data reviewed: vital signs, nurses notes. Data interpreted: Pulse oximetry: on room air kb is 95 %. Interpretation: normal. Counseling: I had a detailed discussion with the patient and/or guardian regarding: the historical points, exam findings, and any diagnostic results supporting the discharge/admit diagnosis, radiology results, the need for outpatient follow up, a family practitioner, to return to the emergency department if symptoms worsen or persist or if there are any questions or concerns that arise at home. 06/05 18:10 Order name: US Extremity Venous Unilateral Ltd; Complete Time: 19:58 kb Administered Medications: 06/05 19:59 Drug: [place] (7.5 mg-325 mg) 1 tabs Route: PO; ll2 Disposition: 06/06 09:07 Co-signature as Attending Physician, Adam Carpenter MD I agree with the assessment and adam plan of care. Disposition: 06/05/20 20:07 Discharged to Home. Impression: Muscle spasm of calf. - Condition is Stable. - Discharge Instructions: Muscle Cramps and Spasms, [id number]. - Prescriptions for Cyclobenzaprine 10 mg Oral Tablet - take 1 tablet by ORAL route every 8 hours As needed; 21 tablet. - Medication Reconciliation Form, Thank You Letter, Antibiotic Education, Prescription Opioid Use form. - Follow up: Emergency Department; When: As needed; Reason: Worsening of condition. Follow up: Private Physician; When: 2 - 3 days; Reason: Recheck today's complaints, Continuance of care, Re-evaluation by your physician. Signatures: Dispatcher [employer] Rere Dorsey, PRINT DEVELOPER-C PRINT DEVELOPER-Adam Phelps MD MD cha Williams, Irene, HERMELINDA SHEN Joe Escudero 4 Alaina Chiang RN RN ll2 Corrections: (The following items were deleted from the chart) 06/05 20:18 20:07 06/05/2020 20:07 Discharged to Home. Impression: Muscle spasm of calf. Condition dh4 is Stable. Forms are Medication Reconciliation Form, Thank You Letter, Antibiotic Education, Prescription Opioid Use. Follow up: Emergency Department; When: As needed; Reason: Worsening of condition. Follow up: Private Physician; When: 2 - 3 days; Reason: Recheck today's complaints, Continuance of care, Re-evaluation by your physician. kb
[2020-06-05] MEDS ORDERED: HYDROCODONE/APAP 7.5/325 MG TAB ONE (20:14)
[2020-06-05 20:22] VITALS: BP 107/93; TEMP 99; O2SAT 95
== END 2020-06-05 20:18 | disposition home or self-care (01) ==
LOC: ER 17:49
DX: M62.831 Muscle spasm of calf (principal); F41.8 Other specified anxiety disorders; Z88.3 Allergy status to other anti-infective agents
CPT/HCPCS: 93971; 99283